=== PATIENT | female | born 1940 | race Caucasian/White ===

== ENCOUNTER 2021-04-25 08:59 | Outpatient (REF) | payer MEDICARE, SELFPAY ==
[2021-04-25 11:26] LABS: Alanine Aminotransferase 7 U/L (0-31); Albumin Level 4.4 g/dL (3.5-5.0); Alkaline Phosphatase 79 U/L (39-117); Anion Gap 15 (12-20); Aspartate Amino Transferase 16 U/L (5-31); Bilirubin Total 0.5 mg/dL (0.0-1.0); Blood Urea Nitrogen 31 mg/dL (9-16); Calcium 9.4 mg/dL (8.4-10.2); Carbon Dioxide 26 mmol/L (22-29); Chloride 103 mmol/L (96-108); Cholesterol 212 mg/dL; Estimated Glomerular Filt Rate 46; Glucose Fasting 101 mg/dL (60-99); HDL Cholesterol 58 mg/dL; LDL Cholesterol Calculated 129 mg/dl; Potassium 3.9 mmol/L (3.3-5.1); Sodium 140 mmol/L (135-145); Total Protein 6.8 g/dL (6.5-8.0); Triglycerides 128 mg/dL
[2021-04-25 11:44] LABS: Hematocrit 39.4 % (37-47); Mean Corpuscular Hemoglobin 32.5 pg (27.0-33.0); Mean Corpuscular Volume 98.5 fL (80-98); Mean Platelet Volume 10.4 fL (9.4-12.3); Platelet Count 275 X10*3/uL (160-400); Red Cell Distribution Width 12.9 % (11.0-16.0); White Blood Count 7.5 X10*3/uL (4.8-10.8)
[2021-04-25 11:48] LABS: Thyroid Stimulating Hormone 1.21 uIU/mL (0.32-4.0); Vitamin D 25-OH Total 81.9 ng/mL (>30)
[2021-04-25 11:58] LABS: Vitamin B12 > 2000 pg/mL (200-900)
== END 2021-04-25 09:00 | disposition home or self-care (01) ==
LOC: HO.MANLDS 08:59
PROVIDERS: PCP Internal Medicine; Visit Provider Internal Medicine
DX: I10 Essential (primary) hypertension (principal); F32.1 Major depressive disorder, single episode, moderate; R53.83 Other fatigue
CPT/HCPCS: 36415; 80053; 80061; 82306; 82607; 84443; 85027

== ENCOUNTER 2022-03-13 08:34 | Outpatient (REF) | payer MEDICARE, SELFPAY ==
[2022-03-13 11:25] LABS: Hematocrit 40.6 % (37.0-47.0); Hemoglobin 13.1 g/dl (12.0-16.0); Mean Corpuscular HGB Conc 32.3 g/dl (31.0-35.0); Mean Corpuscular Hemoglobin 31.9 pg (27.0-33.0); Mean Corpuscular Volume 98.8 fL (80.0-98.0); Mean Platelet Volume 10.4 fL (9.4-12.3); Platelet Count 280 X10*3/uL (160-400); Red Blood Count 4.11 X10*6/uL (4.20-5.50); Red Cell Distribution Width 13.2 % (11.0-16.0); White Blood Count 6.3 X10*3/uL (4.8-10.8)
[2022-03-13 11:36] LABS: Estimated Average Glucose 100 mg/dL; Hemoglobin A1c % 5.1 %
[2022-03-13 12:06] LABS: Vitamin D 25-OH Total 53.4 ng/mL (>30)
[2022-03-13 12:14] LABS: Alanine Aminotransferase 10 U/L (0-31); Albumin Level 4.3 g/dL (3.5-5.0); Alkaline Phosphatase 80 U/L (39-117); Anion Gap 12 (12-20); Aspartate Amino Transferase 14 U/L (5-31); Bilirubin Total 0.4 mg/dL (0.0-1.0); Blood Urea Nitrogen 32 mg/dL (9-16); Calcium 9.6 mg/dL (8.4-10.2); Carbon Dioxide 29 mmol/L (22-29); Chloride 103 mmol/L (96-108); Estimated Glomerular Filt Rate 44; Glucose Random 94 mg/dL (60-115); Potassium 4.2 mmol/L (3.3-5.1); Sodium 140 mmol/L (135-145); Total Protein 6.7 g/dL (6.5-8.0)
== END 2022-03-13 08:35 | disposition home or self-care (01) ==
LOC: HO.MANLDS 08:34
PROVIDERS: PCP Internal Medicine; Visit Provider Internal Medicine
DX: I10 Essential (primary) hypertension (principal); R73.01 Impaired fasting glucose
CPT/HCPCS: 36415; 80053; 82306; 83036; 85027

== ENCOUNTER 2022-11-25 11:07 | Outpatient (REF) | payer MEDICARE, SELFPAY ==
[2022-11-25 14:04] LABS: MANUAL DIFF FLAG NO
[2022-11-25 14:21] LABS: Basophils Percent Auto 0.3 % (0-2); Eosinophils Absolute Auto 0.1 X10*3/uL (0.0-0.4); Eosinophils Percent Auto 1.5 % (0-4); Hematocrit 37.1 % (37.0-47.0); Hemoglobin 12.2 g/dl (12.0-16.0); Imm Gran Abs Auto 0.03 X10*3/uL (0.00-0.03); Imm Gran Pct Auto 0.4 % (0.0-0.4); Lymphocytes Absolute Auto 0.8 X10*3/uL (1.2-4.9); Mean Corpuscular HGB Conc 32.9 g/dl (31.0-35.0); Mean Corpuscular Hemoglobin 32.3 pg (27.0-33.0); Mean Corpuscular Volume 98.1 fL (80.0-98.0); Mean Platelet Volume 10.2 fL (9.4-12.3); Monocytes Absolute Auto 0.5 X10*3/uL (0.1-1.2); Monocytes Percent Auto 6.1 % (2-11); Neutrophils Absolute Auto 6.5 x10*3/uL (2.0-8.3); Neutrophils Percent Auto 81.7 % (45-73); Platelet Count 265 X10*3/uL (160-400); Red Blood Count 3.78 X10*6/uL (4.20-5.50); White Blood Count 7.9 X10*3/uL (4.8-10.8)
[2022-11-25 14:58] LABS: Alanine Aminotransferase 9 U/L (0-31); Albumin Level 4.2 g/dL (3.5-5.0); Alkaline Phosphatase 90 U/L (39-117); Anion Gap 14 (12-20); Aspartate Amino Transferase 16 U/L (5-31); Bilirubin Total 0.4 mg/dL (0.0-1.0); Blood Urea Nitrogen 41 mg/dL (9-16); Calcium 9.1 mg/dL (8.4-10.2); Carbon Dioxide 24 mmol/L (22-29); Chloride 103 mmol/L (96-108); Estimated Glomerular Filt Rate 52; Glucose Random 123 mg/dL (60-115); Potassium 4.2 mmol/L (3.3-5.1); Sodium 137 mmol/L (135-145); Thyroid Stimulating Hormone 1.58 uIU/mL (0.32-4.0); Total Protein 6.3 g/dL (6.5-8.0); Vitamin D 25-OH Total 79.2 ng/mL (>30)
== END 2022-11-25 11:08 | disposition home or self-care (01) ==
LOC: HO.MANLDS 11:07
PROVIDERS: Visit Provider Internal Medicine
DX: I10 Essential (primary) hypertension (principal)
CPT/HCPCS: 36415; 80053; 82306; 84443; 85025

== ENCOUNTER 2023-12-15 09:35 | Outpatient (REF) | payer MEDICARE, SELFPAY ==
[2023-12-15 13:55] LABS: MANUAL DIFF FLAG NO
[2023-12-15 14:04] LABS: Basophils Percent Auto 0.4 % (0-2); Eosinophils Absolute Auto 0.1 X10*3/uL (0.0-0.4); Eosinophils Percent Auto 1.4 % (0-4); Hematocrit 38.5 % (37.0-47.0); Hemoglobin 12.7 g/dl (12.0-16.0); Imm Gran Abs Auto 0.03 X10*3/uL (0.00-0.03); Imm Gran Pct Auto 0.4 % (0.0-0.4); Lymphocytes Absolute Auto 0.8 X10*3/uL (1.2-4.9); Lymphocytes Percent Auto 10.9 % (20-40); Mean Corpuscular Hemoglobin 31.7 pg (27.0-33.0); Mean Platelet Volume 10.1 fL (9.4-12.3); Monocytes Absolute Auto 0.6 X10*3/uL (0.1-1.2); Neutrophils Absolute Auto 5.7 x10*3/uL (2.0-8.3); Neutrophils Percent Auto 78.9 % (45-73); Platelet Count 293 X10*3/uL (160-400); Red Blood Count 4.01 X10*6/uL (4.20-5.50); Red Cell Distribution Width 13.6 % (11.0-16.0); White Blood Count 7.2 X10*3/uL (4.8-10.8)
[2023-12-15 14:17] LABS: Estimated Average Glucose 82 mg/dL; Hemoglobin A1c % 4.5 % (<6.0)
[2023-12-15 14:19] LABS: Alanine Aminotransferase 8 U/L (0-31); Albumin Level 4.3 g/dL (3.5-5.0); Alkaline Phosphatase 92 U/L (39-117); Anion Gap 14 (12-20); Aspartate Amino Transferase 18 U/L (5-31); Bilirubin Total 0.4 mg/dL (0.0-1.0); Blood Urea Nitrogen 32 mg/dL (9-16); Calcium 9.5 mg/dL (8.4-10.2); Carbon Dioxide 27 mmol/L (22-29); Chloride 100 mmol/L (96-108); Cholesterol 216 mg/dL (<200); Estimated Glomerular Filt Rate 45; Glucose Random 103 mg/dL (60-115); HDL Cholesterol 62 mg/dL (>40); LDL Cholesterol Calculated 131 mg/dL (<100); Potassium 4.3 mmol/L (3.3-5.1); Sodium 137 mmol/L (135-145); Triglycerides 119 mg/dL (<150)
[2023-12-15 14:36] LABS: Vitamin D 25-OH Total 105.8 ng/mL (>30)
[2023-12-15 14:48] LABS: Folate 9.9 ng/mL (> or = 4.0); Vitamin B12 > 2000 pg/mL (200-900)
== END 2023-12-15 09:36 | disposition home or self-care (01) ==
LOC: HO.MANLDS 09:35
PROVIDERS: Visit Provider Internal Medicine
DX: I10 Essential (primary) hypertension (principal); R73.01 Impaired fasting glucose; E55.9 Vitamin D deficiency, unspecified
CPT/HCPCS: 36415; 80053; 80061; 82306; 82607; 82746; 83036; 85025

== ENCOUNTER 2024-03-22 11:16 | Outpatient (REF) | payer MEDICARE, SELFPAY ==
[2024-03-22 13:21] LABS: MANUAL DIFF FLAG NO
[2024-03-22 13:54] LABS: Basophils Percent Auto 0.5 % (0-2); Eosinophils Percent Auto 0.7 % (0-4); Hematocrit 23.7 % (37.0-47.0); Hemoglobin 7.5 g/dl (12.0-16.0); Imm Gran Abs Auto 0.02 X10*3/uL (0.00-0.03); Imm Gran Pct Auto 0.3 % (0.0-0.4); Lymphocytes Absolute Auto 0.5 X10*3/uL (1.2-4.9); Mean Corpuscular HGB Conc 31.6 g/dl (31.0-35.0); Mean Corpuscular Volume 97.9 fL (80.0-98.0); Mean Platelet Volume 9.4 fL (9.4-12.3); Monocytes Absolute Auto 0.4 X10*3/uL (0.1-1.2); Monocytes Percent Auto 6.4 % (2-11); Neutrophils Absolute Auto 4.9 x10*3/uL (2.0-8.3); Neutrophils Percent Auto 83.1 % (45-73); Platelet Count 360 X10*3/uL (160-400); Red Blood Count 2.42 X10*6/uL (4.20-5.50); Red Cell Distribution Width 14.2 % (11.0-16.0); White Blood Count 5.9 X10*3/uL (4.8-10.8)
[2024-03-22 14:11] LABS: Alanine Aminotransferase 5 U/L (0-31); Albumin Level 3.9 g/dL (3.5-5.0); Alkaline Phosphatase 80 U/L (39-117); Anion Gap 12 (12-20); Aspartate Amino Transferase 14 U/L (5-31); Bilirubin Total 0.2 mg/dL (0.0-1.0); Blood Urea Nitrogen 30 mg/dL (9-16); Calcium 9.1 mg/dL (8.4-10.2); Carbon Dioxide 25 mmol/L (22-29); Chloride 105 mmol/L (96-108); Estimated Glomerular Filt Rate 40; Glucose Random 96 mg/dL (60-115); Iron 21 mcg/dL (30-160); Percent Iron Saturation 8 % (15-50); Potassium 4.2 mmol/L (3.3-5.1); Sodium 138 mmol/L (135-145); Total Iron Binding Capacity 264 mcg/dL (228-428); Total Protein 6.3 g/dL (6.5-8.0); Unsaturated Iron Binding 243 ug/dL
[2024-03-22 14:29] LABS: Ferritin 74 ng/mL (10-250)
== END 2024-03-22 11:17 | disposition home or self-care (01) ==
LOC: HO.MANLDS 11:16
PROVIDERS: Visit Provider Physician Assistant
DX: R19.5 Other fecal abnormalities (principal)
CPT/HCPCS: 36415; 80053; 82728; 83540; 85025

== ENCOUNTER 2024-04-07 11:14 | Outpatient (REF) | payer MEDICARE, SELFPAY ==
[2024-04-07 13:21] LABS: MANUAL DIFF FLAG NO
[2024-04-07 13:51] LABS: Basophils Percent Auto 0.5 % (0-2); Eosinophils Absolute Auto 0.1 X10*3/uL (0.0-0.4); Eosinophils Percent Auto 1.5 % (0-4); Imm Gran Abs Auto 0.04 X10*3/uL (0.00-0.03); Imm Gran Pct Auto 0.6 % (0.0-0.4); Lymphocytes Absolute Auto 0.6 X10*3/uL (1.2-4.9); Lymphocytes Percent Auto 8.8 % (20-40); Mean Corpuscular HGB Conc 31.1 g/dl (31.0-35.0); Mean Corpuscular Hemoglobin 29.3 pg (27.0-33.0); Mean Corpuscular Volume 94.1 fL (80.0-98.0); Mean Platelet Volume 9.7 fL (9.4-12.3); Monocytes Absolute Auto 0.6 X10*3/uL (0.1-1.2); Monocytes Percent Auto 9.1 % (2-11); Neutrophils Absolute Auto 5.2 x10*3/uL (2.0-8.3); Neutrophils Percent Auto 79.5 % (45-73); Platelet Count 321 X10*3/uL (160-400); Red Blood Count 2.05 X10*6/uL (4.20-5.50); Red Cell Distribution Width 14.4 % (11.0-16.0); White Blood Count 6.5 X10*3/uL (4.8-10.8)
[2024-04-07 13:58] LABS: Hematocrit 19.3 % (37.0-47.0)
[2024-04-07 14:14] LABS: Iron 10 mcg/dL (30-160); Percent Iron Saturation 4 % (15-50); Total Iron Binding Capacity 261 mcg/dL (228-428); Unsaturated Iron Binding 251 ug/dL
[2024-04-07 14:34] LABS: Folate 9.5 ng/mL (> or = 4.0); Vitamin B12 1367 pg/mL (200-900)
[2024-04-07 14:37] LABS: Ferritin 44 ng/mL (10-250)
== END 2024-04-07 11:15 | disposition home or self-care (01) ==
LOC: HO.MANLDS 11:14
PROVIDERS: Visit Provider Physician Assistant
DX: Z13.89 Encounter for screening for other disorder (principal)
CPT/HCPCS: 36415; 82607; 82728; 82746; 83540; 85025

== ENCOUNTER 2024-04-07 15:13 | Inpatient (IN) | payer MEDICARE, SELFPAY ==
[2024-04-07] VITALS (12 sets, daily range): BP systolic 104–169; BP diastolic 47–76; PULSE 67–85; RESP 12–20; TEMP 36.4–37.5; O2SAT 96–99; BMI 23.8
--- NOTE | 2024-04-07 15:21 | ED.GENADULT ---
HPI - General Adult General Chief complaint: Recheck/Abnormal Lab/Rx Stated complaint: ref by pcp for bloodwork/transfusion Time Seen by Provider: 04/07/24 15:53 Source: patient and family (, Jamal) Mode of arrival: ambulatory Limitations: no limitations History of Present Illness ED Provider: Dr. Espinoza Francisco HPI narrative: 84-year-old female with a history of hyperlipidemia, mini strokes, left total knee replacement, left carotid endarterectomy who presents emergency department for evaluation of hematocrit. The patient states that she had a total knee replacement at [facility] in January of 2024. After this total knee replacement she was placed on Eliquis for 1 month and the prescription was not renewed. The patient states that she had a mini stroke many years ago in his been on Plavix since then. Patient states that she had a another mini stroke on Feb 24 2024 and was admitted to [facility]. She states she had a left carotid endarterectomy at that time. Patient states that she was continued on Plavix but not started on any other medications. Patient was told that she had anemia after her 2nd mini stroke and that she would need to follow-up with her primary care doctor. She states that she saw her primary care doctor today and had blood work. She was called and told that her hematocrit and hemoglobin were low and that she needed to go to the emergency department for evaluation and transfusions. Patient states that she has been asymptomatic. She denied lightheadedness, dizziness, chest pain with exertion, dyspnea on exertion, shortness of breath, weight loss or weight gain. She has not noticed any dark tarry stools bloody stools or black stools. She states she does take [id number] supplements including B12. Related Data Allergies Allergy/AdvReac Type Severity Reaction Status Date / Time aspirin Allergy Hives Verified 04/07/24 15:22 Review of Systems Review of Systems: Yes all other systems are reviewed and are negative [facility] Past Medical History [facility] Narrative: Social history: The patient is a former smoker and states she quit smoking after her 2nd mini stroke in February of 2024. She has a greater than 50 pack-year history of smoking. She states she only occasionally drinks alcohol. She denies drug use. Social History Social History Advance Directives: No Advance Directives Information Provided: No Physical Exam ED Vital Signs: Vital Signs - 24 hr 04/07/24 15:19 04/07/24 15:35 04/07/24 16:09 Temperature 99.5 F 98.4 F 9.3 F L Pulse Rate 77 85 67 Respiratory Rate 16 14 12 Blood Pressure 126/47 L 104/52 L 122/53 L Pulse Oximetry 97 98 99 Oxygen Delivery Method Room Air Room Air Room Air 04/07/24 16:54 04/07/24 17:11 Temperature 98.2 F 97.6 F Pulse Rate 69 74 Respiratory Rate 16 18 Blood Pressure 144/65 H 152/66 H Pulse Oximetry Oxygen Delivery Method BMI result Body Mass Index 23.8 Vital signs were normal Exam: General: Awake, alert in no distress Head: Normocephalic, atraumatic EENT: PERRL, Lids normal, sclera normal, conjunctiva normal, nose normal , ears normal, throat without erythema or exudates Neck: Supple, no adenopathy Lung: breath sounds symmetric, no wheezing, rales or rhonchi Chest: symmetric movement, nontender Heart: Normal rate with an irregular rhythm, normal S1, S2 no murmurs or rubs Abdomen: soft, non-tender, nondistended, normal bowel sounds Rectal: No external hemorrhoids, good rectal tone , brown stool strongly Hemoccult positive Back: no vertebral tenderness, no CVAT Extremities: no deformities, moves all extremities symmetrically Neuro: Awake, alert, oriented, normal speech, cranial nerves intact, moves all extremities symmetrically Psych: Pleasant, cooperative Course Course Course Narrative: This is an RME done by FIDEL Vargas: Additional HPI, ROS, PE not included below will be deferred to primary provider. 84 year old female hx of obesity, recent knee surgery present w/ abnormal labs from pcp w/ low H&H had gi bleeding before but not lately was on thinners but she stopped taking them a while ago Plan- labs, obs Appearance: Alert.? Oriented X3.? No acute cardiopulmonary distress distress.? Head: Normocephalic, atraumatic, no step-offs or deformities CVS: Pulses normal.? Respiratory: No respiratory distress.? Abdomen: Soft and nontender.? Skin: ? Pale skin color. Extremities: 5/5 strength to bilateral upper and lower extremities Neuro: Oriented X 3.? No motor deficit.? No sensory deficit. Medications Administered Generic Name Dose Route Start Last Admin Trade Name Freq PRN Reason Stop Dose Admin Sodium Chloride 100 mls @ 100 mls/hr 04/07/24 16:29 04/07/24 16:56 Ns IV 04/07/24 17:28 100 mls/hr ONCE ONE Administration Medical Decision Making Medical Decision Making [facility] Narrative: 84-year-old female with a history of hyperlipidemia, mini strokes, left total knee replacement, left carotid endarterectomy who presents emergency department for evaluation of hematocrit. The patient states that she had a total knee replacement at [facility] in January of 2024 in took a short course of Eliquis but is no longer on this medication. Patient has been on Plavix for many years secondary to previous mini stroke. Patient was admitted to [facility] for mini stroke 02/24/2024. She states she had a left carotid endarterectomy at that time and was continued on Plavix. She was told that she had anemia and she followed up today with her PCP had blood work and was found to be severely anemic and referred to the emergency department. The patient has been asymptomatic despite having severe anemia. Physical examination was unremarkable except for a rectal exam that revealed brown stool which was strongly Hemoccult positive. Differential diagnosis: ?Includes but is not limited to GI bleed, GI malignancy, myelodysplastic disorder, thiamine/folate deficiency, iron deficiency Following evaluation was ordered: CBC, CMP, type and screen, occult stool testing Patient was initially treated with the followin units of packed red blood cells each transfused over 2-3 hours Course: 17:08 My interpretation patient's laboratory evaluation is as follows: WBC normal 6100. Low H&H of 5.8 and 18.4. Baseline limited range is from 6.0 to 12.7. Baseline hematocrit range is from 21.4 to 38.5. Patient's MCV today was normal at 92.5 but the patient has had elevated MCV as high as 100.8. BUN elevated at 34-chronically elevated with a normal creatinine of 1.2. Patient had iron studies from yesterday which revealed low iron of 10, normal TIBC of 261, normal ferritin and normal iron binding capacity-this could represent iron deficiency however normal TIBC and normal ferritin were unexpected (TIBC should be high and ferritin should be low and iron deficient). Also MCV should be low. B12 was elevated 1367-the patient does take B12 supplement. Folate was normal at 9.5. Given the patient's Hemoccult-positive stool her persistent anemia, I think the patient should be admitted to the hospital to further evaluate her persistent anemia and now severe anemia 17:18 I did discuss the patient's presentation over tiger text with the covering hospitalist, Dr. Bourgeois the patient was accepted on the hospitalist service for further management. Admission/Observation Consideration of admission/observation: Escalation of care including admission/observation considered Consult Healthcare Provider Management of the patient was discussed with: Hospitalist Lab Data MDM Lab Attestation statement: I reviewed the patient's lab results. 04/07/24 15:45 04/07/24 15:45 Labs: Lab Results 04/07/24 04/07/24 04/07/24 Range/Units 15:45 15:49 16:24 WBC 6.1 (4.8-10.8) X10*3/uL RBC 1.99 L (4.20-5.50) X10*6/uL Hgb 5.8 L* (12.0-16.0) g/dl Hct 18.4 L* (37.0-47.0) % MCV 92.5 (80.0-98.0) fL MCH 29.1 (27.0-33.0) pg MCHC 31.5 (31.0-35.0) g/dl RDW 14.4 (11.0-16.0) % Plt Count 293 (160-400) X10*3/uL MPV 9.1 L (9.4-12.3) fL Immature Gran % (Auto) 0.3 (0.0-0.4) % Neut % (Auto) 75.0 H (45-73) % Lymph % (Auto) 12.4 L (20-40) % Greer % (Auto) 9.9 (2-11) % Eos % (Auto) 2.1 (0-4) % Baso % (Auto) 0.3 (0-2) % Lymph # (Auto) 0.8 L (1.2-4.9) X10*3/uL Greer # (Auto) 0.6 (0.1-1.2) X10*3/uL Eos # (Auto) 0.1 (0.0-0.4) X10*3/uL Baso # (Auto) 0.0 (0.0-0.2) X10*3/uL Abs Immat Gran (auto) 0.02 (0.00-0.03) X10*3/uL Absolute Neuts (auto) 4.6 (2.0-8.3) x10*3/uL Absolute Nucleated RBC 0.000 (0.0-0.012) X10*3/uL Nucleated RBC % (auto) 0.0 (0.0-0.2) /100WBC Sodium 135 (135-145) mmol/L Potassium 4.6 (3.3-5.1) mmol/L Chloride 102 (96-108) mmol/L Carbon Dioxide 24 (22-29) mmol/L Anion Gap 14 (12-20) BUN 34 H (9-16) mg/dL Creatinine 1.20 (0.5-1.4) mg/dL Estim Creat Clear Calc 35.1 Estimated GFR 43 Random Glucose 99 (60-115) mg/dL Calcium 8.1 L D (8.4-10.2) mg/dL Total Bilirubin 0.2 (0.0-1.0) mg/dL AST 15 (5-31) U/L ALT 9 (0-31) U/L Alkaline Phosphatase 88 (39-117) U/L Total Protein 6.1 L (6.5-8.0) g/dL Albumin 3.7 (3.5-5.0) g/dL Stool Occult Blood POSITIVE (NEGATIVE) Blood Type A Positive Antibody Screen NEGATIVE Crossmatch See Detail Independent Historian Clinical information obtained from an independent historian. History obtained from or confirmed by: Spouse Critical Care Time Critical Care Time Critical Care Time: Yes Total Critical Care Time: 35 Attestation: Critical Care: The patient was critically ill with a high probability of imminent or life threatening deterioration. I spent greater than 30 minutes of discontinuous time evaluating the patient,delivering critical care at the bedside, discussing and evaluating pertinent data with consultants. Critical care time does not include time spent performing separately billable procedures or teaching. Total time spent performing critical care was 35 minutes. Discharge Plan Discharge Patient Disposition: Admitted As Inpatient Print Language: Setswana
--- NOTE | 2024-04-07 15:51 | PC.NURSE ---
a&ox4. vss and up to date. 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 pt presents to main ED from triage after being sent in by PCP d/t low H&H. pt has no acute complaints. denies pain/feeling dizzy/lightheaded/black stool. abd nontender. pt reports having blood transfusion many years ago. 20gIV placed in the right AC - labs obtained/sent to lab. no sob/wob noted. respirations even/unlabored. plan of care ongoing. bedside for support. call beckman placed within reach.
[2024-04-07 15:52] LABS: MANUAL DIFF FLAG NO
[2024-04-07 15:59] LABS: Basophils Percent Auto 0.3 % (0-2); Eosinophils Absolute Auto 0.1 X10*3/uL (0.0-0.4); Eosinophils Percent Auto 2.1 % (0-4); Imm Gran Abs Auto 0.02 X10*3/uL (0.00-0.03); Imm Gran Pct Auto 0.3 % (0.0-0.4); Lymphocytes Absolute Auto 0.8 X10*3/uL (1.2-4.9); Lymphocytes Percent Auto 12.4 % (20-40); Mean Corpuscular HGB Conc 31.5 g/dl (31.0-35.0); Mean Corpuscular Hemoglobin 29.1 pg (27.0-33.0); Mean Corpuscular Volume 92.5 fL (80.0-98.0); Mean Platelet Volume 9.1 fL (9.4-12.3); Monocytes Absolute Auto 0.6 X10*3/uL (0.1-1.2); Monocytes Percent Auto 9.9 % (2-11); Neutrophils Absolute Auto 4.6 x10*3/uL (2.0-8.3); Platelet Count 293 X10*3/uL (160-400); Red Blood Count 1.99 X10*6/uL (4.20-5.50); Red Cell Distribution Width 14.4 % (11.0-16.0); White Blood Count 6.1 X10*3/uL (4.8-10.8)
[2024-04-07 16:05] LABS: Hematocrit 18.4 % (37.0-47.0)
[2024-04-07 16:07] LABS: Hemoglobin 5.8 g/dl (12.0-16.0)
[2024-04-07 16:10] LABS: Alanine Aminotransferase 9 U/L (0-31); Albumin Level 3.7 g/dL (3.5-5.0); Alkaline Phosphatase 88 U/L (39-117); Anion Gap 14 (12-20); Aspartate Amino Transferase 15 U/L (5-31); Bilirubin Total 0.2 mg/dL (0.0-1.0); Blood Urea Nitrogen 34 mg/dL (9-16); Calcium 8.1 mg/dL (8.4-10.2); Carbon Dioxide 24 mmol/L (22-29); Chloride 102 mmol/L (96-108); Creatinine Clr Calc Pharmacy 35.1; Estimated Glomerular Filt Rate 43; Glucose Random 99 mg/dL (60-115); Potassium 4.6 mmol/L (3.3-5.1); Sodium 135 mmol/L (135-145); Total Protein 6.1 g/dL (6.5-8.0)
--- NOTE | 2024-04-07 16:30 | PC.NURSE ---
obsx1 obtained by dr. moffett at this time. skin warm to the touch - rectal temp obtained displaying 99.3. otherwise vss. 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 pt aware of stool occult results/plan of care moving foward.
[2024-04-07 16:40] LABS: OBS Int Ctl Valid YES; OBS1 POSITIVE (NEGATIVE)
--- NOTE | 2024-04-07 16:56 | ECG_ITS ---
Test Reason : IRREGULAR RHYTHM, ANEMIA Blood Pressure : / mmHG Vent. Rate : 074 BPM Atrial Rate : 074 BPM P-R Int : 186 ms QRS Dur : 096 ms QT Int : 392 ms P-R-T Axes : 063 -13 044 degrees QTc Int : 435 ms Sinus rhythm with Premature supraventricular complexes Possible Left atrial enlargement Borderline ECG No previous ECGs available Referred By: Espinoza Francisco Electronically Signed By:Nathaniel Shin
--- NOTE | 2024-04-07 17:05 | PC.NURSE ---
1st unit of PRBC starting to infusion at this time. pt tolerating first 15 min of transfusion well. no signs of complications/reactions noted at this time. no sob/wob noted. respirations even/unlabored.
--- NOTE | 2024-04-07 17:12 | PC.NURSE ---
pt tolerated first 15 minutes of PRBC transfusion. no complications noted. pt transitioned to maintenance via pump at this time - infusing at 200mls/hr. no sob/wob noted. respirations even/unlabored. plan of care ongoing. call beckman placed within reach.
--- NOTE | 2024-04-07 17:38 | P.HPHOSP_ITS ---
History of Present Illness Date of Service: 04/07/24 Chief Complaint: anemia 84F 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, s/p left CEA 02/19/24, ckd III, gerd, htn, sent for hgb 6 on routine labs. shun is on plavix for cva, was on eliquis 2.5mg bid for 30 days from mid january to mid february 2024 for dvt prophylaxis sp left tka. patient reports some dark stools while on eliquis, but has since resolved. denies any symptoms. hgb was 9.2 on 02/22/24, decreased to 7.5 on 03/22/24, and now 6. heme occult positive, iron sat low. Review of Systems 2 Review of Systems: Yes all other systems are reviewed and are negative [facility] Social History Alcohol intake: current Alcohol intake frequency: holidays/special occasions only Patient Tobacco Use Status: Former Tobacco user Meds Allergies Allergy/AdvReac Type Severity Reaction Status Date / Time aspirin Allergy Hives Verified 04/07/24 15:22 Active Medications: Current Medications Pantoprazole Sodium (Pantoprazole Sodium 40 Mg/10 Ml Vial) 40 mg IVPUSH BID@0630,1630 [facility] Physical Exam 2 Vital Signs and Narrative: Vital Signs: Last Vital Signs Temp 97.6 F 04/07/24 17:11 Pulse 74 04/07/24 17:11 Resp 18 04/07/24 17:11 BP 152/66 H 04/07/24 17:11 Pulse Ox 99 04/07/24 16:09 O2 Del Method Room Air 04/07/24 16:09 BMI result Body Mass Index 23.8 General: AO X 3, no acute distress Resp: CTA bilateral, no accessory muscles used CVS: S1,S2,RRR GI: soft, non tender, non distended Neuro: motor grossly intact, alert Psych: appropriate affect, appropriate insight Results Labs 04/07/24 15:45 04/07/24 15:45 Labs: Laboratory Results - last 24 hr 04/07/24 04/07/24 04/07/24 15:45 15:49 16:24 MCV 92.5 MCH 29.1 MCHC 31.5 RDW 14.4 Plt Count 293 MPV 9.1 L Immature Gran % (Auto) 0.3 Neut % (Auto) 75.0 H Lymph % (Auto) 12.4 L [place] % (Auto) 9.9 Eos % (Auto) 2.1 Baso % (Auto) 0.3 Lymph # (Auto) 0.8 L [place] # (Auto) 0.6 Eos # (Auto) 0.1 Baso # (Auto) 0.0 Abs Immat Gran (auto) 0.02 Absolute Neuts (auto) 4.6 Absolute Nucleated RBC 0.000 Nucleated RBC % (auto) 0.0 Anion Gap 14 Estim Creat Clear Calc 35.1 Estimated GFR 43 Random Glucose 99 Calcium 8.1 L D Total Bilirubin 0.2 AST 15 ALT 9 Alkaline Phosphatase 88 Total Protein 6.1 L Albumin 3.7 Stool Occult Blood POSITIVE Blood Type A Positive Antibody Screen NEGATIVE Crossmatch See Detail Assessment and Plan (1) Severe anemia: Status: Acute Plan 84F 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, s/p left CEA 02/19/24, ckd III, gerd, htn, sent for hgb 6 on routine labs acute on chronic blood loss anemia ppi, gi eval, 2 units prbc, monitor will continue plavix for now, as risk for stroke currently higher than bleeding risk, if signs of gross bleeding would discontinue history of cva with bilateral carotid stenosis, s/p left cea on plavix (asa and statin intolerant), o/p follow up with vascular for right cea ckd III stable htn amlodipine dvt prophylaxis - mechanical due to gi bleed full code patient with significant anemia, requires multiple transfusions, close monitoring, and possible gi intervention, therefore, expected to require atleast 2 midnights inpatient Quality Stroke Does the patient have a stroke diagnosis?: No VTE Prior VTE?: No VTE Risk Level:: Medical - moderate - high VTE Device Contraindication: N/A - Device Ordered VTE Drug Contraindication: Treatment Not Tolerated
[2024-04-07] MEDS: Pantoprazole Sodium 40 MG/10 ML VIAL IVPUSH (17:54)
--- NOTE | 2024-04-07 17:57 | PC.NURSE ---
medication administered per provider order. ekg performed by tech/sent to admitting provider.
--- NOTE | 2024-04-07 18:02 | MHC.EDTECH ---
I gave the EKG picture to MAGGIE Hough , she said will be send to the provider
--- NOTE | 2024-04-07 19:07 | PHA.MEDREC ---
Pharmacy Consult ? Medication Reconciliation Pharmacy has completed the medication reconciliation.
--- NOTE | 2024-04-07 19:12 | PC.NURSE ---
1 st unit of PRBC's transfused, patient tolerated well, VSS.
--- NOTE | 2024-04-07 20:01 | PC.NURSE ---
2 nd unit of PRBC started and infusing via 20 G IV line in L AC, patient tolerating transfusion well, no signs and symptoms of adverse reactions noted at this time, VSS.
[2024-04-07] MEDS: LORazepam 1 MG TABLET PO (22:09)
[2024-04-07] MEDS: traZODone HCL 25 MG HALFTAB 75 MG PO (22:09)
[2024-04-08] VITALS (7 sets, daily range): BP systolic 134–161; BP diastolic 60–75; PULSE 57–78; RESP 16–20; TEMP 36.2–37.1; O2SAT 95–99
[2024-04-08] MEDS: Pantoprazole Sodium 40 MG/10 ML VIAL IVPUSH ×2 (06:10→15:42)
[2024-04-08 06:16] LABS: Hemoglobin 7.9 g/dl (12.0-16.0); Mean Corpuscular HGB Conc 32.9 g/dl (31.0-35.0); Mean Corpuscular Hemoglobin 29.6 pg (27.0-33.0); Mean Corpuscular Volume 89.9 fL (80.0-98.0); Mean Platelet Volume 9.3 fL (9.4-12.3); Platelet Count 301 X10*3/uL (160-400); Red Blood Count 2.67 X10*6/uL (4.20-5.50); Red Cell Distribution Width 14.1 % (11.0-16.0); White Blood Count 5.5 X10*3/uL (4.8-10.8)
[2024-04-08 06:33] LABS: Anion Gap 12 (12-20); Blood Urea Nitrogen 29 mg/dL (9-16); Calcium 8.6 mg/dL (8.4-10.2); Carbon Dioxide 25 mmol/L (22-29); Chloride 104 mmol/L (96-108); Creatinine Clr Calc Pharmacy 46.3; Estimated Glomerular Filt Rate 59; Glucose Fasting 92 mg/dL (60-99); Potassium 4.1 mmol/L (3.3-5.1); Sodium 137 mmol/L (135-145)
[2024-04-08] MEDS: amLODIPine Besylate 5 MG TABLET PO (08:31)
[2024-04-08] MEDS: Magnesium Oxide 400 MG TABLET PO (08:31)
[2024-04-08] MEDS: Ascorbic Acid 500 MG TABLET PO (08:31)
[2024-04-08] MEDS: Cyanocobalamin (Vitamin B-12) 100 MCG TABLET PO (08:31)
[2024-04-08] MEDS: Clopidogrel Bisulfate 75 MG TABLET PO (08:31)
--- NOTE | 2024-04-08 09:31 | MHC.CM.PN ---
Addendum entered by Viri Wade 04/08/24 12:14: Copy of HCP received from pts , now on file. Original Note: IMM 04/08. Pt self-care, lives at home with her /HCP. Pt uses a walker. Pts or daughter will transport her home at discharge. HCP copy requested. PCP: Dr. Lee Bolden
--- NOTE | 2024-04-08 09:33 | MHC.SHP ---
Pre-Procedural Eval Section A - 24 Hr Update-Section A only Date of Service: 04/08/24 The patient is an INPATIENT: Yes Changes since office visit: No Cold of Flu in the past 2 weeks, No New Medical Problems, No Changes in Medication and No Patient answered all questions The patient has been examined within 24 hours of the surgical procedure. The History & Physical has been completed within 30 days and I have reviewed it.: Yes Section B - Complete if H&P > 30 days Chief Complaint: GI Bleed Allergies: Allergies Allergy/AdvReac Type Severity Reaction Status Date / Time aspirin Allergy Hives Verified 04/07/24 15:22 Plan I have reviewed the history and physical and performed a pertinent physical examination on my patient. No changes have occurred unless specified. Time Spent With Patient Time: Total time managing care of this patient today ____ minutes.
--- NOTE | 2024-04-08 09:33 | PM.EVENT ---
Event Note Date of Service: 04/08/24 Event Note: GI consult dictated EGD/Colonoscopy are scheduled for further evaluation of significant iron def anemia and heme pos stools. Sophia is aware of risks and benefits and agrees to proceed. At this time, it appears that the benefits of continuing clopidogrel outweigh the risks of stopping it as she is high risk for cva and there is no active bleeding. Time Spent With Patient Time: Total time managing care of this patient today ____ minutes.
--- NOTE | 2024-04-08 10:25 | CONS_ITS ---
DATE OF SERVICE: 04/08/2024 REFERRING PHYSICIAN: David Bourgeois MD REASON FOR CONSULTATION: Anemia and Hemoccult-positive stools. HISTORY OF PRESENT ILLNESS: The patient is a pleasant 84-year-old woman, who was admitted to the hospital after presenting to the emergency department yesterday at the request of her primary care provider because of severe anemia. She has a history of CVA and underwent carotid endarterectomy in February and has been on anti-platelet medication with clopidogrel since. She does not tolerate aspirin. She previously had been on Eliquis, but this was stopped also. She reports dark stools in the past, which were formed, but denies any bright red blood per rectum or melena. She has previously undergone colonoscopy in the past approximately 10 years ago by her report. She thinks she may have had polyps. A Cologuard test was done within the last 5 years by her report, which was negative. She denies any history of peptic ulcer disease. She did formally smoke on a regular basis and does not drink significant amounts of alcohol. Laboratory data at the time of her evaluation documented a hematocrit of 18.4, which was comparable to the hematocrit that had been obtained by her PCP of 19.3. MCV has dropped over the past several months from 96 in November to 89.9 this morning. Coagulation studies have been normal. Iron saturation yesterday documented an iron saturation 4%. PAST MEDICAL HISTORY: 1. CVA as above with left CEA. 2. Chronic kidney disease. 3. Gastroesophageal reflux disease. 4. Hypertension. 5. 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 Eliquis used for 1 month after that. 6. Hyperlipidemia. CURRENT MEDICATIONS: Her current medication list is reviewed in the chart. ALLERGIES: ASPIRIN HAS BEEN ASSOCIATED WITH HIVES. FAMILY HISTORY: This is reviewed with the patient and is negative for GI malignancy. SOCIAL HISTORY: There is no current tobacco, alcohol, or substance abuse. REVIEW OF SYSTEMS: SKIN: No pruritus. HEENT: Negative. CARDIOPULMONARY: No shortness of breath or chest pain. GASTROINTESTINAL: As above. GENITOURINARY: Negative. NEUROPSYCHIATRIC: Negative. PHYSICAL EXAMINATION: GENERAL: Reveals a pleasant female, lying comfortably in bed. VITAL SIGNS: Reviewed in the electronic medical record and are stable. SKIN: Anicteric. HEENT: Shows no scleral icterus. NECK: Without lymphadenopathy or thyromegaly. LUNGS: Clear. HEART: Shows regular rate and rhythm. S1, S2. No murmur. ABDOMEN: Soft without focal masses or tenderness. Bowel sounds are present. No organomegaly is noted. EXTREMITIES: Without edema. LABORATORY DATA AND IMAGING STUDIES: Reviewed. IMPRESSION: 1. Iron deficiency anemia. 2. Hemoccult-positive stools. At this time, it seems prudent to continue clopidogrel because of her recent history of strokes as well as her carotid surgery. I have recommended she undergo further evaluation with upper endoscopy and colonoscopy because of her iron deficiency anemia and Hemoccult-positive stools. She did receive packed red blood cells overnight with improvement in her hematocrit and has not had any reported bleeding. At this time, she currently appears stable. She will undergo bowel prep later today and is scheduled for endoscopy and colonoscopy in the morning. Thanks for asking me to see her. I will follow her in the hospital with you. MD AIME Felder/DAREN / [phone]
--- NOTE | 2024-04-08 13:12 | HO.PM.IMPN ---
Subjective Subjective Date of Service: 04/08/24 Interval History: Seen and evaluated this morning No reported bleeding overnight Hb improved to 7.8 Review of Systems Review of Systems: Yes all other systems are reviewed and are negative Physical Exam Vital Signs: Vital Signs: Last Vital Signs Temp 98.0 F 04/08/24 11:14 Pulse 78 04/08/24 11:14 Resp 18 04/08/24 11:14 BP 135/67 04/08/24 11:14 Pulse Ox 96 04/08/24 11:14 O2 Del Method Room Air 04/08/24 11:14 BMI result Body Mass Index 23.8 Const: Other: Constitutional : Awake, interactive, not in distress Neck : Normal inspection, Supple Cardiovascular : RRR, no JVP, no lower extremity edema Respiratory : good bilateral air entry, no crackles, wheezes or rhonchi Gastrointestinal: soft, lax, Normal bowel sounds, Non tender Skin : Warm, Dry Neurological : Alert & oriented to self and place, No focal deficit Objective Data Active Medications Amlodipine Besylate (Amlodipine Besylate 5 Mg Tablet) 5 mg PO DAILY [facility]; Protocol Last Admin: 04/08/24 08:31 Dose: 5 mg Documented By: NANCY Ascorbic Acid (Ascorbic Acid 500 Mg Tablet) 500 mg PO DAILY [facility] Last Admin: 04/08/24 08:31 Dose: 500 mg Documented By: NANCY Clopidogrel Bisulfate (Clopidogrel Bisulfate 75 Mg Tablet) 75 mg PO DAILY [facility] Last Admin: 04/08/24 08:31 Dose: 75 mg Documented By: NANCY Cyanocobalamin (Cyanocobalamin (Vitamin B-12) 100 Mcg Tablet) 100 mcg PO DAILY [facility] Last Admin: 04/08/24 08:31 Dose: 100 mcg Documented By: NANCY Lorazepam (Lorazepam 1 Mg Tablet) 1 mg PO TID PRN PRN Reason: Anxiety Last Admin: 04/07/24 22:09 Dose: 1 mg Documented By: CARMEN Magnesium Oxide (Magnesium Oxide 400 Mg Tablet) 400 mg PO DAILY [facility] Last Admin: 04/08/24 08:31 Dose: 400 mg Documented By: NANCY Pantoprazole Sodium (Pantoprazole Sodium 40 Mg/10 Ml Vial) 40 mg IVPUSH BID@0630,1630 [facility] Last Admin: 04/08/24 06:10 Dose: 40 mg Documented By: CARMEN Polyethylene Glycol/Electrolytes (Peg 3350/Na Sulf,Bicarb,Cl/Kcl 4,000 Ml Soln.Recon) 240 ml PO Q10M DONOVAN Stop: 04/08/24 15:41 Trazodone HCl (Trazodone Hcl 25 Mg Halftab) 75 mg PO BEDTIME ODNOVAN Last Admin: 04/07/24 22:09 Dose: 75 mg Documented By: CARMEN Labs 04/08/24 05:48 04/08/24 05:48 Labs: Laboratory Results - last 24 hr 04/07/24 04/07/24 04/07/24 15:45 15:49 16:24 MCV 92.5 MCH 29.1 MCHC 31.5 RDW 14.4 Plt Count 293 MPV 9.1 L Immature Gran % (Auto) 0.3 Neut % (Auto) 75.0 H Lymph % (Auto) 12.4 L [place] % (Auto) 9.9 Eos % (Auto) 2.1 Baso % (Auto) 0.3 Lymph # (Auto) 0.8 L [place] # (Auto) 0.6 Eos # (Auto) 0.1 Baso # (Auto) 0.0 Abs Immat Gran (auto) 0.02 Absolute Neuts (auto) 4.6 Absolute Nucleated RBC 0.000 Nucleated RBC % (auto) 0.0 Anion Gap 14 Estim Creat Clear Calc 35.1 Estimated GFR 43 Random Glucose 99 Fasting Glucose Calcium 8.1 L D Total Bilirubin 0.2 AST 15 ALT 9 Alkaline Phosphatase 88 Total Protein 6.1 L Albumin 3.7 Stool Occult Blood POSITIVE Blood Type A Positive Antibody Screen NEGATIVE Crossmatch See Detail 04/08/24 05:48 MCV 89.9 MCH 29.6 MCHC 32.9 RDW 14.1 Plt Count 301 MPV 9.3 L Immature Gran % (Auto) Neut % (Auto) Lymph % (Auto) [place] % (Auto) Eos % (Auto) Baso % (Auto) Lymph # (Auto) [place] # (Auto) Eos # (Auto) Baso # (Auto) Abs Immat Gran (auto) Absolute Neuts (auto) Absolute Nucleated RBC 0.000 Nucleated RBC % (auto) 0.0 Anion Gap 12 Estim Creat Clear Calc 46.3 Estimated GFR 59 Random Glucose Fasting Glucose 92 Calcium 8.6 D Total Bilirubin AST ALT Alkaline Phosphatase Total Protein Albumin Stool Occult Blood Blood Type Antibody Screen Crossmatch Assessment and Plan (1) Positive fecal occult blood test: Status: Acute (2) Severe anemia: Status: Acute (3) Symptomatic anemia: Status: Acute (4) Acute on chronic blood loss anemia: Status: Acute Plan 84F 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, s/p left CEA 02/19/24, ckd III, gerd, htn, sent for hgb 6 on routine labs acute on chronic blood loss anemia Hb impoved to 7.8 after 2 units transfusion Continue IV ppi GI to do EGD and colonoscopy tomorrow will continue plavix for now, as risk for stroke currently higher than bleeding risk, if signs of gross bleeding would discontinue follow H&H history of cva with bilateral carotid stenosis, s/p left cea on plavix (asa and statin intolerant), o/p follow up with vascular for right cea ckd III stable htn amlodipine dvt prophylaxis - mechanical due to gi bleed full code patient with significant anemia, requires multiple transfusions, close monitoring, and possible gi intervention, therefore, expected to require overnight as inpatient Quality Stroke Does the patient have a stroke diagnosis?: No VTE Prior VTE?: No VTE Risk Level:: Medical - moderate - high VTE Device Contraindication: N/A - Device Ordered VTE Drug Contraindication: Treatment Not Tolerated
[2024-04-08] MEDS: PEG 3350/Na Sulf,Bicarb,Cl/KCL 4,000 ML SOLN.RECON 4000 ML PO (15:56)
[2024-04-08] MEDS: traZODone HCL 25 MG HALFTAB 75 MG PO (21:58)
[2024-04-09] VITALS (8 sets, daily range): BP systolic 119–176; BP diastolic 52–72; PULSE 65–77; RESP 15–20; TEMP 36.3–37.3; O2SAT 93–100
[2024-04-09] MEDS: Pantoprazole Sodium 40 MG/10 ML VIAL IVPUSH (06:32)
[2024-04-09 08:54] LABS: Red Cell Distribution Width 14.2 % (11.0-16.0)
[2024-04-09 08:58] LABS: Mean Corpuscular Hemoglobin 30.4 pg (27.0-33.0); Mean Corpuscular Volume 89.6 fL (80.0-98.0); Mean Platelet Volume 9.3 fL (9.4-12.3); Platelet Count 377 X10*3/uL (160-400); Red Blood Count 3.35 X10*6/uL (4.20-5.50); White Blood Count 6.9 X10*3/uL (4.8-10.8)
[2024-04-09 09:01] LABS: Hemoglobin 10.2 g/dl (12.0-16.0)
[2024-04-09 09:08] LABS: Anion Gap 15 (12-20); Blood Urea Nitrogen 14 mg/dL (9-16); Calcium 9.5 mg/dL (8.4-10.2); Carbon Dioxide 27 mmol/L (22-29); Chloride 103 mmol/L (96-108); Creatinine Clr Calc Pharmacy 50.2; Estimated Glomerular Filt Rate > 60; Glucose Random 105 mg/dL (60-115); Potassium 3.7 mmol/L (3.3-5.1); Sodium 141 mmol/L (135-145)
--- NOTE | 2024-04-09 09:27 | P.PNIM_ITS ---
Subjective Subjective Date of Service: 04/09/24 Interval History: Seen and evaluated this morning No reported bleeding overnight Hb improved to 10.2 Plan for EGD\Colonoscopy Review of Systems Review of Systems: Yes all other systems are reviewed and are negative Physical Exam 2 Vital Signs: Vital Signs: Last Vital Signs Temp 98.2 F 04/09/24 07:12 Pulse 68 04/09/24 07:12 Resp 18 04/09/24 07:12 BP 135/63 04/09/24 07:12 Pulse Ox 96 04/09/24 07:12 O2 Del Method Room Air 04/09/24 07:12 BMI result Body Mass Index 23.8 Const: Other: Constitutional : Awake, interactive, not in distress Neck : Normal inspection, Supple Cardiovascular : RRR, no JVP, no lower extremity edema Respiratory : good bilateral air entry, no crackles, wheezes or rhonchi Gastrointestinal: soft, lax, Normal bowel sounds, Non tender Skin : Warm, Dry Neurological : Alert & oriented to self and place, No focal deficit Objective Data Active Medications Amlodipine Besylate (Amlodipine Besylate 5 Mg Tablet) 5 mg PO DAILY [facility]; Protocol Last Admin: 04/09/24 09:25 Dose: Not Given Documented By: PRERNA Non-Admin Reason: NPO, procedure Ascorbic Acid (Ascorbic Acid 500 Mg Tablet) 500 mg PO DAILY [facility] Last Admin: 04/09/24 09:25 Dose: Not Given Documented By: PRERNA Non-Admin Reason: NPO, procedure Clopidogrel Bisulfate (Clopidogrel Bisulfate 75 Mg Tablet) 75 mg PO DAILY [facility] Last Admin: 04/09/24 09:25 Dose: Not Given Documented By: PRERNA Non-Admin Reason: NPO, procedure Cyanocobalamin (Cyanocobalamin (Vitamin B-12) 100 Mcg Tablet) 100 mcg PO DAILY [facility] Last Admin: 04/09/24 09:25 Dose: Not Given Documented By: PRERNA Non-Admin Reason: NPO, procedure Lorazepam (Lorazepam 1 Mg Tablet) 1 mg PO TID PRN PRN Reason: Anxiety Last Admin: 04/07/24 22:09 Dose: 1 mg Documented By: CARMEN Magnesium Oxide (Magnesium Oxide 400 Mg Tablet) 400 mg PO DAILY [facility] Last Admin: 04/09/24 09:25 Dose: Not Given Documented By: PRERNA Non-Admin Reason: NPO, procedure Pantoprazole Sodium (Pantoprazole Sodium 40 Mg/10 Ml Vial) 40 mg IVPUSH BID@0630,1630 [facility] Last Admin: 04/09/24 06:32 Dose: 40 mg Documented By: YAW Trazodone HCl (Trazodone Hcl 25 Mg Halftab) 75 mg PO BEDTIME [facility] Last Admin: 04/08/24 21:58 Dose: 75 mg Documented By: YAW Labs 04/09/24 08:09 04/09/24 08:08 Labs: Laboratory Results - last 24 hr 04/09/24 04/09/24 08:08 08:09 MCV 89.6 MCH 30.4 MCHC 34.0 RDW 14.2 Plt Count 377 D MPV 9.3 L Absolute Nucleated RBC 0.000 Nucleated RBC % (auto) 0.0 Anion Gap 15 Estim Creat Clear Calc 50.2 Estimated GFR > 60 Random Glucose 105 Calcium 9.5 D Assessment and Plan (1) Acute on chronic blood loss anemia: Status: Acute (2) Symptomatic anemia: Status: Acute Plan 84F 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, s/p left CEA 02/19/24, ckd III, gerd, htn, sent for hgb 6 on routine labs acute on chronic blood loss anemia Hb impoved to 10.2 after 2 units transfusion Continue IV ppi GI to do EGD and colonoscopy today will continue plavix for now, as risk for stroke currently higher than bleeding risk, if signs of gross bleeding would discontinue follow H&H history of cva with bilateral carotid stenosis, s/p left cea on plavix (asa and statin intolerant), o/p follow up with vascular for right cea ckd III stable htn amlodipine dvt prophylaxis - mechanical due to gi bleed full code patient with significant anemia, requires multiple transfusions, close monitoring, and gi intervention, therefore, expected to require overnight as inpatient Quality Stroke Does the patient have a stroke diagnosis?: No VTE Prior VTE?: No VTE Risk Level:: Medical - moderate - high VTE Device Contraindication: N/A - Device Ordered VTE Drug Contraindication: Treatment Not Tolerated
--- NOTE | 2024-04-09 12:30 | HO.ANESPROP2 ---
[facility] Active Problems Active Problems: All Active Problems Acute on chronic blood loss anemia (Acute) Symptomatic anemia (Acute) Positive fecal occult blood test (Acute) Severe anemia (Acute) Past Medical History Medical History Blindness of left eye Hip fracture, left Femur fracture, left FHx: total knee replacement HTN (hypertension) GERD (gastroesophageal reflux disease) Chronic kidney disease Carotid stenosis, bilateral CVA (cerebral vascular accident) Family History Family history of problems with anesthesia: No Surgical History Surgical History History of right cataract surgery History of left-sided carotid endarterectomy History of Problems with Anesthesia: Yes Social History Social History Household Members: Spouse Housing: House Alcohol intake: current Alcohol intake frequency: holidays/special occasions only Patient Tobacco Use Status: Former Tobacco user service: No Meds Allergies Allergy/AdvReac Type Severity Reaction Status Date / Time aspirin Allergy Hives Verified 04/07/24 15:22 Active Medications: Current Medications Amlodipine Besylate (Amlodipine Besylate 5 Mg Tablet) 5 mg PO DAILY [facility]; Protocol Last Admin: 04/09/24 09:25 Dose: Not Given Ascorbic Acid (Ascorbic Acid 500 Mg Tablet) 500 mg PO DAILY [facility] Last Admin: 04/09/24 09:25 Dose: Not Given Clopidogrel Bisulfate (Clopidogrel Bisulfate 75 Mg Tablet) 75 mg PO DAILY [facility] Last Admin: 04/09/24 09:25 Dose: Not Given Cyanocobalamin (Cyanocobalamin (Vitamin B-12) 100 Mcg Tablet) 100 mcg PO DAILY [facility] Last Admin: 04/09/24 09:25 Dose: Not Given Lorazepam (Lorazepam 1 Mg Tablet) 1 mg PO TID PRN PRN Reason: Anxiety Last Admin: 04/07/24 22:09 Dose: 1 mg Magnesium Oxide (Magnesium Oxide 400 Mg Tablet) 400 mg PO DAILY [facility] Last Admin: 04/09/24 09:25 Dose: Not Given Pantoprazole Sodium (Pantoprazole Sodium 40 Mg/10 Ml Vial) 40 mg IVPUSH BID@0630,1630 [facility] Last Admin: 04/09/24 06:32 Dose: 40 mg Trazodone HCl (Trazodone Hcl 25 Mg Halftab) 75 mg PO BEDTIME DONOVAN Last Admin: 04/08/24 21:58 Dose: 75 mg Home Medications ?Medication ?Instructions ?Recorded ?Confirmed ?Last Taken ?Type amlodipine 10 mg tablet 10 mg PO DAILY 04/07/24 04/07/24 04/07/24 History ascorbic acid (vitamin C) 500 mg 500 mg PO DAILY 04/07/24 04/07/24 04/07/24 History tablet clopidogrel 75 mg tablet 75 mg PO DAILY 04/07/24 04/07/24 04/07/24 History cranberry 400 mg capsule 400 mg PO DAILY 04/07/24 04/07/24 Unknown History cyanocobalamin (vitamin B-12) 100 100 mcg PO DAILY 04/07/24 04/07/24 04/07/24 History mcg tablet lorazepam 1 mg tablet 1 mg PO Q8H anxiety 04/07/24 04/07/24 04/07/24 History magnesium oxide 400 mg (241.3 mg 400 mg PO DAILY 04/07/24 04/07/24 04/07/24 History magnesium) tablet pantoprazole 40 mg tablet,delayed 40 mg PO DAILY@0630 04/07/24 04/07/24 04/07/24 History release trazodone 50 mg tablet 75 mg PO BEDTIME 04/07/24 04/07/24 04/07/24 History Exam Height,Weight and Vital Signs: Height 5 ft 7 in Weight 68.8 kg Last Vital Signs Temp 98.5 F 04/09/24 12:25 Pulse 77 04/09/24 12:25 Resp 16 04/09/24 12:25 BP 152/72 H 04/09/24 12:25 Pulse Ox 93 04/09/24 12:25 O2 Del Method Room Air 04/09/24 12:25 Pertinent Lab Results Pertinent Lab Results: Laboratory Tests 04/07/24 04/07/24 04/07/24 15:45 15:49 16:24 WBC 6.1 RBC 1.99 L Hgb 5.8 L* Hct 18.4 L* MCV 92.5 MCH 29.1 MCHC 31.5 RDW 14.4 Plt Count 293 MPV 9.1 L Immature Gran % (Auto) 0.3 Neut % (Auto) 75.0 H Lymph % (Auto) 12.4 L [place] % (Auto) 9.9 Eos % (Auto) 2.1 Baso % (Auto) 0.3 Lymph # (Auto) 0.8 L [place] # (Auto) 0.6 Eos # (Auto) 0.1 Baso # (Auto) 0.0 Abs Immat Gran (auto) 0.02 Absolute Neuts (auto) 4.6 Absolute Nucleated RBC 0.000 Nucleated RBC % (auto) 0.0 Sodium 135 Potassium 4.6 Chloride 102 Carbon Dioxide 24 Anion Gap 14 BUN 34 H Creatinine 1.20 Estim Creat Clear Calc 35.1 Estimated GFR 43 Random Glucose 99 Fasting Glucose Calcium 8.1 L D Total Bilirubin 0.2 AST 15 ALT 9 Alkaline Phosphatase 88 Total Protein 6.1 L Albumin 3.7 Stool Occult Blood POSITIVE Blood Type A Positive Antibody Screen NEGATIVE Crossmatch See Detail 04/08/24 04/09/24 04/09/24 05:48 08:08 08:09 WBC 5.5 6.9 RBC 2.67 L D 3.35 L D Hgb 7.9 L D 10.2 L D Hct 24.0 L D 30.0 L D MCV 89.9 89.6 MCH 29.6 30.4 MCHC 32.9 34.0 RDW 14.1 14.2 Plt Count 301 377 D MPV 9.3 L 9.3 L Immature Gran % (Auto) Neut % (Auto) Lymph % (Auto) [place] % (Auto) Eos % (Auto) Baso % (Auto) Lymph # (Auto) [place] # (Auto) Eos # (Auto) Baso # (Auto) Abs Immat Gran (auto) Absolute Neuts (auto) Absolute Nucleated RBC 0.000 0.000 Nucleated RBC % (auto) 0.0 0.0 Sodium 137 141 Potassium 4.1 3.7 Chloride 104 103 Carbon Dioxide 25 27 Anion Gap 12 15 BUN 29 H 14 Creatinine 0.91 0.84 Estim Creat Clear Calc 46.3 50.2 Estimated GFR 59 > 60 Random Glucose 105 Fasting Glucose 92 Calcium 8.6 D 9.5 D Total Bilirubin AST ALT Alkaline Phosphatase Total Protein Albumin Stool Occult Blood Blood Type Antibody Screen Crossmatch Airway Mallampati Class: II TM Dist: >3cm Neck ROM: Full Heart: RRR Lungs: CTA Assessment and Plan Assessment Anesthesia Assessment: Anesthesia Plan Discussed Final Anesthetic Review Family History of Problems with Anesthesia: No History of Problems with Anesthesia: Yes NPO: Yes ASA Class: III Final Preanesthetic Review: Meds/Allgs Chart Reviewed, Consent Obtained/Reviewed and Anes Risks/Benef Reviewed Patient Risk: Low Procedure Risk: Low Anesthetic Plan Anesthetic Plan: MAC: Disposition: Standard PACU
--- NOTE | 2024-04-09 12:50 | MHC.SHP ---
Pre-Procedural Eval Section A - 24 Hr Update-Section A only Date of Service: 04/09/24 The patient is an INPATIENT: Yes Changes since office visit: No Cold of Flu in the past 2 weeks, No New Medical Problems, No Changes in Medication and No Patient answered all questions The patient has been examined within 24 hours of the surgical procedure. The History & Physical has been completed within 30 days and I have reviewed it.: Yes Section B - Complete if H&P > 30 days Chief Complaint: GI Bleed Allergies: Allergies Allergy/AdvReac Type Severity Reaction Status Date / Time aspirin Allergy Hives Verified 04/07/24 15:22 Plan I have reviewed the history and physical and performed a pertinent physical examination on my patient. No changes have occurred unless specified. Time Spent With Patient Time: Total time managing care of this patient today ____ minutes.
--- NOTE | 2024-04-09 12:53 | MHC.CM.PN ---
Pt requiring continued acute care, she is having endoscopy, colonoscopy today. DCP: home, self care. CM to follow for DC needs.
--- NOTE | 2024-04-09 13:34 | P.BOP_ITS ---
Brief Operative Note Date of Service: 04/09/24 Pre-op diagnosis: POLO heme pos stool Post-op diagnosis: same Surgeon: Lamin Castro MD Anesthesia: MAC Was an Correctional Officer Chief used for this Procedure?: No Estimated blood loss (mL): 3 Pathology: other Condition: stable Disposition: PACU
--- NOTE | 2024-04-09 13:36 | PM.EVENT ---
Event Note Date of Service: 04/09/24 Event Note: GI EGD and colon are fairly unremarkable. biopsies taken Rec: advance diet f/u bx results iron supplementation follow hct Time Spent With Patient Time: Total time managing care of this patient today ____ minutes.
--- NOTE | 2024-04-09 14:15 | OP_ITS ---
DATE OF SERVICE: 04/09/2024 SURGEON: Lamin Castro MD INDICATIONS: Iron-deficiency anemia and Hemoccult-positive stools. PREOPERATIVE DIAGNOSIS: POSTOPERATIVE DIAGNOSIS: PROCEDURE PERFORMED: Upper endoscopy with biopsy, colonoscopy to the terminal ileum. ESTIMATED BLOOD LOSS: COMPLICATIONS: ANESTHESIA: Monitored anesthesia care. ASSISTANTS: SPECIMENS: DESCRIPTION OF PROCEDURE: A history and physical was performed. The risks and benefits of the procedure were explained to the patient. Informed consent was obtained. The patient was placed in the left lateral decubitus position. The Olympus video gastroscope was introduced into the esophagus, stomach, and duodenum. Examination was performed, and the scope was removed. She was repositioned for colonoscopy. A digital rectal exam was performed and was found to be normal. The Olympus pediatric video colonoscope was introduced into the rectum and advanced to the cecum. The cecum was identified by transillumination, palpation, and identification of ileocecal valve. Examination was performed. The scope was removed. She tolerated both procedures well and returned to recovery area in stable condition. FINDINGS: Upper endoscopy: Esophagus: The esophagus was normal. There was a moderate-sized hiatal hernia. Stomach: The stomach showed no evidence of masses or ulcers. There was some nonspecific erythema in the antrum. Biopsies were obtained from the antrum. No bleeding source was identified. Duodenum: The bulb and 2nd portion were normal. Biopsies were obtained from the 2nd portion of the duodenum. Colonoscopy: The terminal ileum was explored for approximately 15 cm and appeared normal. The visualized colonic mucosa was normal. The quality of the prep was fair with some liquid stool coating the mucosa that was washed and suctioned. No polyps were identified. Retroflexed examination was normal. IMPRESSION: 1. Normal upper endoscopy. 2. Normal colonoscopy. RECOMMENDATION: 1. Follow up the biopsy results. 2. Begin iron supplementation. 3. Monitor hematocrit. MD AIME Felder/SHARMAINEL / [id number] MTDD
[2024-04-09] MEDS: Omeprazole 20 MG CAPSULE.DR PO (16:49)
[2024-04-09] MEDS: LORazepam 1 MG TABLET PO (20:58)
[2024-04-09] MEDS: traZODone HCL 25 MG HALFTAB 75 MG PO (20:58)
[2024-04-10] VITALS: BP 133/62; PULSE 74; RESP 20; TEMP 36.7; O2SAT 96
[2024-04-10 04:00] VITALS: BP 143/66; PULSE 79; RESP 20; TEMP 36.4; O2SAT 94
[2024-04-10] MEDS: Omeprazole 20 MG CAPSULE.DR PO (06:40)
[2024-04-10 07:02] LABS: Hematocrit 28.6 % (37.0-47.0); Hemoglobin 9.5 g/dl (12.0-16.0); Mean Corpuscular HGB Conc 33.2 g/dl (31.0-35.0); Mean Corpuscular Hemoglobin 30.2 pg (27.0-33.0); Mean Corpuscular Volume 90.8 fL (80.0-98.0); Mean Platelet Volume 9.2 fL (9.4-12.3); Platelet Count 364 X10*3/uL (160-400); Red Blood Count 3.15 X10*6/uL (4.20-5.50); Red Cell Distribution Width 14.3 % (11.0-16.0); White Blood Count 7.6 X10*3/uL (4.8-10.8)
[2024-04-10 08:00] VITALS: BP 170/70; PULSE 69; RESP 18; TEMP 36.7; O2SAT 98
[2024-04-10] MEDS: Magnesium Oxide 400 MG TABLET PO (08:42)
[2024-04-10] MEDS: amLODIPine Besylate 5 MG TABLET PO (08:42)
[2024-04-10] MEDS: Cyanocobalamin (Vitamin B-12) 100 MCG TABLET PO (08:42)
[2024-04-10] MEDS: Clopidogrel Bisulfate 75 MG TABLET PO (08:42)
[2024-04-10] MEDS: Ascorbic Acid 500 MG TABLET PO (08:42)
[2024-04-10] MEDS: Sodium Ferric Gluconat/Sucrose 125 MG in 0.9 % Sodium Chloride 100 ML 100 MG IV (09:05)
--- NOTE | 2024-04-10 10:00 | P.DS_ITS ---
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 shun is on plavix for cva, was on eliquis 2.5mg bid for 30 days from mid january to mid february 2024 for dvt prophylaxis sp left tka. patient reports some dark stools while on eliquis, but has since resolved. denies any symptoms. hgb was 9.2 on 02/22/24, decreased to 7.5 on 03/22/24, and now 6. heme occult positive, iron sat low. Hospital course The patient was admitted for acute on chronic blood loss anemia as Hb on presentation was at 5.8 requiring 2 units of PRBCs transfusion with good response as last reading of 9.5 the day of discharge. No reported bleeding while inpatient. She was treated with IV ppi as she was evaluated by GI who did EGD and colonoscopy with normal studies upper and lower with recommendations to continue Pantoprazole and start Iron supplement with a plan to repeat CBC as outpatient and if further dropping consider Capsule endoscopy. For her history of cva with bilateral carotid stenosis will continue plavix for now, as risk for stroke currently higher than bleeding risk as GI agreed as well. o/p follow up with vascular for right cea Discharge plan Continue Pantoprazole daily Start Iron supplement To repeat blood test next week Follow with PCP\dr Castro for biopsy results and if further testing is needed (Capsule endoscopy) Time Attestation Discharge Coordination Time (in mins): 41 Quality: Safe Use of Opioids Does Pt have an Active Cancer Diagnosis on the Problem List?: No Quality: Stroke Does the patient have a stroke diagnosis?: No Physical Exam Vital Signs: Vital Signs: Last Vital Signs Temp 98.0 F 04/10/24 08:00 Pulse 69 04/10/24 08:00 Resp 18 04/10/24 08:00 BP 170/70 H 04/10/24 08:00 Pulse Ox 98 04/10/24 08:00 O2 Del Method Room Air 04/10/24 08:00 BMI result Body Mass Index 23.8 Const: Other: Constitutional : Awake, interactive, not in distress Neck : Normal inspection, Supple Cardiovascular : RRR, no JVP, no lower extremity edema Respiratory : good bilateral air entry, no crackles, wheezes or rhonchi Gastrointestinal: soft, lax, Normal bowel sounds, Non tender Skin : Warm, Dry Neurological : Alert & oriented to self and place, No focal deficit DS: Data Data Completed and Pending Pending studies at discharge: Pending at discharge 04/09/24 13:11 Surgical [PTH] Routine Labs on day of discharge: Laboratory Results - last 24 hr 04/10/24 06:18 WBC 7.6 RBC 3.15 L Hgb 9.5 L Hct 28.6 L MCV 90.8 MCH 30.2 MCHC 33.2 RDW 14.3 Plt Count 364 MPV 9.2 L Absolute Nucleated RBC 0.000 Nucleated RBC % (auto) 0.0 Discharge Plan Discharge Anticipated Discharge Date/Time: 04/10/24 09:57 Patient Disposition: Home, Self-Care Discharge Diagnosis: Symptomatic acute anemia blood loss anemia Referrals: Lee Bolden MD [Primary Care Provider] - 1 Week Discharge Medications: New ferrous sulfate 324 mg (65 mg iron) tablet,delayed release (DR/EC) 324 mg PO DAILY Qty: 90 0RF Continued cyanocobalamin (vitamin B-12) 100 mcg tablet 100 mcg PO DAILY trazodone 50 mg tablet 75 mg PO BEDTIME clopidogrel 75 mg tablet 75 mg PO DAILY magnesium oxide 400 mg (241.3 mg magnesium) tablet 400 mg PO DAILY ascorbic acid (vitamin C) 500 mg tablet 500 mg PO DAILY amlodipine 10 mg tablet 10 mg PO DAILY lorazepam 1 mg tablet 1 mg PO Q8H cranberry 400 mg Capsule 400 mg PO DAILY Rx Instructions: administer with a meal pantoprazole 40 mg tablet,delayed release (DR/EC) 40 mg PO DAILY@0630 Qty: 90 0RF Discharge Orders: Discharge Order (Routine); Ordered 04/10/24 Ordered By: Chanell Izquierdo Diet: Advance to usual diet Activity on Discharge: As tolerated Stand Alone Forms: Patient Portal Discharge page Print Language: Yi Other Ambulatory Orders: Complete Blood Count Auto Diff (Routine) Timeframe: 5 Days Facility: [facility] - Location: Laboratory Ordered By: Chanell Izquiedro Care Plan Goals: Continue Pantoprazole daily Start Iron supplement To repeat blood test next week Follow with PCP\dr Castro for biopsy results and if further testing is needed (Capsule endoscopy) Health Concerns: Read below Plan of Treatment: Read below Assessment: Read below
--- NOTE | 2024-04-10 11:37 | MHC.CM.PN ---
Patient has been medically cleared for dc to home today, self care.Last IMM addressed on 04/08/2024.
[2024-04-10 12:00] VITALS: BP 147/74; PULSE 75; RESP 17; TEMP 36.7; O2SAT 98
--- NOTE | 2024-04-10 16:06 | HO.POSTANES ---
Post Anesthesia Evaluation Post Anesthesia Evaluation Date of Service: 04/10/24 Vital Signs: Vital Signs Temp Pulse Resp BP Pulse Ox O2 Del Method 04/10/24 12:00 98.0 F 75 17 147/74 H 98 Room Air, [place] Nasal Cannula 04/10/24 08:00 98.0 F 69 18 170/70 H 98 Room Air Anesthesia: Monitored Mental Status: Awake Pain Control: Satisfactory Nausea/Vomiting: None Hydration: Adequate Anesthesia-Related Issues: No Anes. Related Issues
== END 2024-04-10 12:44 | disposition home or self-care (01) | DRG 812 ==
LOC: HO.ED 17:23 → HO.EDOVER 17:39 → HO.IMC 19:47
PROVIDERS: Internal Medicine Gastroenterology; Physician Assistant; Admitting Provider Internal Medicine; Emergency Provider Emergency Medicine Emergency Medical Services; PCP Internal Medicine; Visit Provider Student in an Organized Health Care Education/Training Program
PROC: 0DB78ZX Excision of Stomach, Pylorus, Via Natural or Artificial Opening Endoscopic, Diagnostic (ICD-10-PCS; principal; 2024-04-09 13:20)
DX: D62 Acute posthemorrhagic anemia (principal); N18.30 Chronic kidney disease, stage 3 unspecified; I12.9 Hypertensive chronic kidney disease with stage 1 through stage 4 chronic kidney disease, or unspecified chronic kidney disease; D63.1 Anemia in chronic kidney disease; R19.5 Other fecal abnormalities; Z87.891 Personal history of nicotine dependence; Z79.02 Long term (current) use of antithrombotics/antiplatelets; Z79.899 Other long term (current) drug therapy
CPT/HCPCS: 36415; 80048; 80053; 82272; 82607; 82728; 82746; 83540; 85025; 85027; 86850; 86900; 86901; 86923; 88305; 88313; 88342; 93005; 99285; C9113; J2704; J2916; P9016

== ENCOUNTER → 2024-04-07 16:56 | Outpatient (BNV) | payer MEDICARE, SELFPAY | PROVIDERS: Admitting Provider Internal Medicine; Emergency Provider Emergency Medicine Emergency Medical Services; PCP Internal Medicine; Visit Provider Internal Medicine Cardiovascular Disease | DX: I49.9 Cardiac arrhythmia, unspecified (principal) | CPT/HCPCS: 93010 ==

== ENCOUNTER → 2024-04-07 17:33 | Outpatient (BNV) | payer MEDICARE, SELFPAY | PROVIDERS: Admitting Provider Internal Medicine; Emergency Provider Emergency Medicine Emergency Medical Services; PCP Internal Medicine; Visit Provider Internal Medicine | DX: D62 Acute posthemorrhagic anemia (principal); I12.9 Hypertensive chronic kidney disease with stage 1 through stage 4 chronic kidney disease, or unspecified chronic kidney disease; N18.30 Chronic kidney disease, stage 3 unspecified | CPT/HCPCS: 99223; 99232; 99233; 99239 ==

== ENCOUNTER 2024-04-16 10:23 | Outpatient (REF) | payer MEDICARE, SELFPAY ==
[2024-04-16 13:29] LABS: MANUAL DIFF FLAG NO
[2024-04-16 13:44] LABS: Basophils Percent Auto 0.4 % (0-2); Eosinophils Absolute Auto 0.1 X10*3/uL (0.0-0.4); Hematocrit 32.3 % (37.0-47.0); Hemoglobin 10.1 g/dl (12.0-16.0); Imm Gran Abs Auto 0.04 X10*3/uL (0.00-0.03); Imm Gran Pct Auto 0.6 % (0.0-0.4); Lymphocytes Absolute Auto 0.7 X10*3/uL (1.2-4.9); Lymphocytes Percent Auto 10.1 % (20-40); Mean Corpuscular HGB Conc 31.3 g/dl (31.0-35.0); Mean Corpuscular Volume 95.8 fL (80.0-98.0); Mean Platelet Volume 9.6 fL (9.4-12.3); Monocytes Absolute Auto 0.5 X10*3/uL (0.1-1.2); Monocytes Percent Auto 7.4 % (2-11); Neutrophils Absolute Auto 5.7 x10*3/uL (2.0-8.3); Neutrophils Percent Auto 79.5 % (45-73); Platelet Count 416 X10*3/uL (160-400); Red Blood Count 3.37 X10*6/uL (4.20-5.50); Red Cell Distribution Width 15.4 % (11.0-16.0); White Blood Count 7.2 X10*3/uL (4.8-10.8)
== END 2024-04-16 10:24 | disposition home or self-care (01) ==
LOC: HO.MANLDS 10:23
PROVIDERS: Visit Provider Internal Medicine
DX: D64.9 Anemia, unspecified (principal)
CPT/HCPCS: 36415; 85025

== ENCOUNTER 2024-04-28 10:17 | Outpatient (REF) | payer MEDICARE, SELFPAY ==
[2024-04-28 13:02] LABS: MANUAL DIFF FLAG NO
[2024-04-28 13:29] LABS: Basophils Percent Auto 0.4 % (0-2); Eosinophils Absolute Auto 0.1 X10*3/uL (0.0-0.4); Eosinophils Percent Auto 1.6 % (0-4); Hematocrit 31.8 % (37.0-47.0); Hemoglobin 9.8 g/dl (12.0-16.0); Imm Gran Abs Auto 0.02 X10*3/uL (0.00-0.03); Imm Gran Pct Auto 0.3 % (0.0-0.4); Lymphocytes Absolute Auto 0.6 X10*3/uL (1.2-4.9); Lymphocytes Percent Auto 7.9 % (20-40); Mean Corpuscular HGB Conc 30.8 g/dl (31.0-35.0); Mean Corpuscular Hemoglobin 29.5 pg (27.0-33.0); Mean Corpuscular Volume 95.8 fL (80.0-98.0); Mean Platelet Volume 10.1 fL (9.4-12.3); Monocytes Absolute Auto 0.5 X10*3/uL (0.1-1.2); Monocytes Percent Auto 6.6 % (2-11); Neutrophils Absolute Auto 5.8 x10*3/uL (2.0-8.3); Neutrophils Percent Auto 83.2 % (45-73); Platelet Count 336 X10*3/uL (160-400); Red Blood Count 3.32 X10*6/uL (4.20-5.50); Red Cell Distribution Width 15.7 % (11.0-16.0); White Blood Count 6.9 X10*3/uL (4.8-10.8)
== END 2024-04-28 10:18 | disposition home or self-care (01) ==
LOC: HO.MANLDS 10:17
PROVIDERS: Visit Provider Internal Medicine
DX: Z13.89 Encounter for screening for other disorder (principal)
CPT/HCPCS: 36415; 85025

== ENCOUNTER 2025-07-06 12:06 | Outpatient (REF) | payer MEDICARE, SELFPAY ==
--- OUTSIDE RECORDS SUMMARY | 2024-04-09 09:20 | XMS_ITS ---
Author Organization [facility] Address [address] [place] [phone] Care Team Providers Care Hat [employer]im [employer] Crown Laminating Operator Name Role Phone Lee Bolden Primary Care Provider Lamin Hess Jr REASON FOR VISIT FE DEF ANEMIA, HEME POSITIVE STOOLS Encounters Encounter Location Date Provider Diagnosis [facility] Inpatient [address], [place] [id number] 04/09/2024 Lamin Castro Jr Plan Of Treatment No Information Progress Notes * JUANI WHYTEDOB:1939 (85 yo F)Acc No.[id number]:04/09/2024 EGD and COL/MAC Patient: JUANI MERRILL Provider: Sin Castro MD :1940 A ge:84 Y S ex:Female Date:04/09/2024 Address:[address] [place] [address] [id number] Pcp:Lee Bolden Subjective: * Chief Complaints: * [...] Date: 04/09/2024 Generated for Jules mejia/Paula/Tamicaitting on: 0 07/06/2025 03:34 PM EDT
--- OUTSIDE RECORDS SUMMARY | 2025-07-06 15:34 | XMS_ITS | Encounter Summary ---
Author Organization [facility] Address [address] [place] [address] Phone Care Team Providers Care Rail Car Operator Name Role Phone Lee Bolden DO Primary Care Provider [phone] Encounter Details Date Type Department Care Team ([facility] st Contact Info) Description 07/06/2025 Transcribe Orders Virtual Department [address] [place] [address] Lee Bolden DO [address] [place] [address] [place] [address] [email or web address] Osteopenia after menopause (Primary Dx); Asymptomatic menopausal state; Other specified disorders of bone density and structure, unspecified site; Encounter for screening for malignant neoplasm of breast, unspecified screening modality; Encounter for screening mammogram for malignant neoplasm of breast Social History Tobacco Use Types Packs/Day Years Used Date Smoking Tobacco: Former Cigarettes Q uit: 2009 Smokeless Tobacco: Never Alcohol Use Standard Drinks/Week Comments No 0 (1 standard drink = 0.6 oz pur e alcohol) Education Answer Date Recorded Are you interested in more education? Not on ashwin e 02/14/2023 Are you concerned about learning? Not on file 02/14/2023 No 02/14/2023 No 02/14/2023 Digital Access Answer Date Recorded No 03/15/2023 No 03/15/2023 No 03/15/2023 Reliable internet access at home? Not on file 03/15/2023 Device with a working camera? Not on file Comments No Sex and Gender Information Value Date Recorded Sex Assigned at Not on file Legal Sex Female 10:11 PM EDT Gender Identity Not on file Sexual Orientation Not on file documented as of this encounter Plan of Treatment Scheduled Orders Name Type Priority Associated Diagnoses Orde r Schedule DXA Screening Imaging Routine Osteopenia after menopause Asymptomatic menopausal state Other specified disorders of bone density and structure, unspecified site Expected: 07/06/2025, Expires: 07/06/2027 Mammogram Screening (Bilateral) Imaging Routine Encounter For Screening For Malignant Neoplasm Of Breast, Unspecified Screening Modality Encounter for screening mammogram for malignant neoplasm of breast Expected: 07/06/2025, Expires: 07/06/2027 documented as of this encounter Visit Diagnoses Diagnosis Osteopenia after menopause- Primary Asymptomatic menopausal state Other specified disorders of bone density and structure, unspecified site Encounter for screening for malignant neoplasm of breast, unspecified screening modality documented in this encounter Care Teams Rail Car Operator Relationship Specialty Start Date End Date Lee Bolden DO [email or web address] PCP - General 08/07/17 documented as of this encounter Additional Source Comments The information contained in this document represents components of the legal health record. It is not the complete legal health record.[facility]
--- OUTSIDE RECORDS SUMMARY | 2025-07-06 15:34 | XMS_ITS | Patient Health Record ---
Author Organization [facility] Address [address] [place] [id number] Care Team Providers Care Silk Brusher Name Role Phone Lee Bolden Primary Care Provider Lamin Hess Jr Unavailable Reason For Referral No Information Problems Problem Type SNOMED Code ICD Code Onset Dates Problem Status W/U Status Risk Notes Problem Iron deficiency anemia (44499379) Iron deficiency anemia (D50.9) Active confirmed Plan Of Treatment No Information Insurance Providers Payer Name Payer Address Payer Phone Subscriber Number Group Number Insured Name Patient Relationship to Insured Coverage Start Date Coverage End Date MEDICARE OF [place] [address] [facility] [address] [id number] JUANI WHYTE Self - patient is the insured MED[employer] ATT[employer] CLAIMS [address] [place] [address] [phone] [id number] JUANI WHYTE Self - patient is the insured
--- OUTSIDE RECORDS SUMMARY | 2025-07-06 15:34 | XMS_ITS | Clinical Summary ---
Author Organization [facility] Address [address] [place] [id number] Phone Care Team Providers Care Hauling Contractor Name Role Phone Lee Bolden DO Primary Care Provider [phone] Allergies Active Allergy Reactions Criticality Noted Date Comments Amoxicillin 09/29/2024 Other Reaction(s): Unknown Aspirin Rash Low 08/27/2017 Atenolol 09/29/2024 Other Reaction(s): unknown Atorvastatin 09/29/2024 Other Reaction(s): unknown Colesevelam 09/29/2024 Other Reaction(s): unknown Ezetimibe 09/29/2024 Other Reaction(s): unknown Fenofibrate 09/29/2024 Other Reaction(s): unknown Sertraline 09/29/2024 Other Reaction(s): unknown Medications cranberry 500 mg Cap Take 500 mg by mouth daily. Active vitamin A,C & [id number]-[id number] ls (VISION FORMULA, WITH LUTEIN,) 1,000 unit-200 mg-60 unit-2 mg Tab Take 1 tablet by mouth daily. Active cyanocobalamin, vitamin B-12, 100 MCG tablet 1 tablet qd Act omaira amLODIPine (NORVASC) 5 MG tablet Take 10 mg by mouth daily. Active clopidogrel (PLAVIX) 75 mg tablet Take 75 mg by mouth daily. Active LORazepam (ATIVAN) 0.5 MG tablet Take 0.5 mg by mouth as needed for anxiety. Active cholecalciferol (VITAMIN D3) 1,000 unit tablet Take 1,000 Units by mouth daily. Active ascorbic acid, vitamin C, (VITAMIN C) 500 MG tablet Take 500 mg by mouth daily. Active hylan polymers A and B (SYNVISC) 16 mg/2 mL intra-articular injection syringe Inject 2 mL (16 mg total) into the articular space once a week. 2 mL 0 Active Additional Information Patient not taking.Reported on 09/29/2024 traZODone (DESYREL) 50 MG tablet trazodone 50 mg tablet TAKE 1 TABLET BY MOUTH EVERY DAY IN THE EVENING Active Active Problems Problem Noted Date Diagnosed Date CKD stage 3a, GFR 45-59 ml/min 09/29/2024 LETTY (generalized anxiety disorder) 09/29/2024 GERD without esophagitis 09/29/2024 Hyperlipidemia 07/20/2024 S/P carotid endarterectomy 07/20/2024 Trigger index finger of right hand 02/14/2020 Assessment & Plan (12/19/2021 10:44 PM EST): Injection very helpful in past Repeated injection today-please see procedure note Assessment & Plan (09/11/2020 10:57 AM EST): Inject with cortisone today. Assessment & Plan (08/07/2020 11:13 AM EDT): To new current pain medication and set up for bilateral Synvisc injections and administer a cortisone injection into the flaring painful left knee today. Assessment & Plan (02/14/2020 10:14 AM EDT): Relative rest, local warmth, and stretches in a basin of warm water 3 times daily as needed. Possible injection on next visit. Cerebrovascular accident (CVA) 08/19/2018 Hypertension 01/20/2018 Assessment & Plan (08/24/2019 2:55 PM EST): BP 120/70 today in the right arm sitting. Continue current medication. Assessment & Plan (07/07/2019 11:32 AM EDT): Under good control on current medications and attention to low-sodium diet. Avoid NSAIDs. Assessment & Plan (04/06/2019 11:16 AM EDT): Understands the need for medication compliance, and low-sodium diet. Assessment & Plan (09/28/2018 11:25 AM EST): Under good control on current medications. Assessment & Plan (01/20/2018 12:49 PM EDT): This is under reasonably good control on current medication. She Synvisc stay on a low-sodium diet. My blood pressure today was 132/76 in the right arm sitting. 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 Assessment & Plan (01/29/2021 11:39 AM EDT): Attempted aspiration and corticosteroid injection today. Assessment & Plan (09/25/2020 10:04 AM EST): Third and final Synvisc injection today. Assessment & Plan (09/11/2020 10:57 AM EST): First injection of Synvisc today. Assessment & Plan (08/07/2020 11:13 AM EDT): Continue current medication regimen and set up for bilateral Synvisc injections. Assessment & Plan (02/14/2020 10:15 AM EDT): Reviewed x-rays of both knees indicating severe end-stage medial compartment osteoarthritis with exuberant osteophytosis and medial compartment collapse. Ultimately total joint arthroplasty would be the most reasonable approach but comorbidities and sick and ongoing pandemic prevent that at this time. She failed Visco supplementation. She does not find tramadol that helpful. She will continue to work on quadricep strengthening. She will come in next week for cortisone injections. All questions were answered. Assessment & Plan (09/22/2019 4:29 PM EST): Quadricep strengthening and we will arrange Visco supplementation for her. She will have a cortisone injection today. Assessment & Plan (08/24/2019 2:56 PM EST): X-rays of left and right knee were reviewed done last week. Severe end-stage medial compartment osteoarthritis with exuberant osteophytosis, subchondral cyst formation, subchondral sclerosis and complete collapse of the medial compartment. Interestingly, she is using less tramadol and more Tylenol but staying under 3000 mg daily and this seems to suffice. Talked about venturing into use Visco supplementation and I feel that we should do that if she is not able to make it till mid September (3 months) for another set of cortisone injections. Her comorbid conditions I believe precludes safe surgical approach to this. Assessment & Plan (07/07/2019 11:32 AM EDT): Advanced tricompartmental osteoarthritic pain will continue to be treated with quadricep strengthening, contrast baths, tramadol as needed and intra-articular steroids today. Assessment & Plan (04/06/2019 11:16 AM EDT): Reviewed x-rays of both left and right knee showing advanced tricompartmental degenerative disease. In addition to quadricep strengthening and well fitting shoes and tramadol she will have intra-articular steroid injection today. Assessment & Plan (01/04/2019 10:49 AM EDT): Inject right knee today. Discussed quadricep strengthening, well fitting supportive shoes with good shock absorption and fall and fracture prevention strategies. Assessment & Plan (09/28/2018 11:24 AM EST): He will continue on tramadol as needed for pain relief as well as quadricep strengthening and well fitting supportive shoes with good shock absorption and a cortisone injection today intra-articularly. Assessment & Plan (06/25/2018 11:43 AM EDT): Severe osteoarthritis in this knee. Medications will remain unchanged. She will have a pain relieving cortisone injection today. Assessment & Plan (04/14/2018 10:45 AM EDT): Patient is having a flare up of right knee osteoarthritis which be treated with a cortisone injection today. We had a full discussion today which lasted about 50% of our 15 minute visit going over the natural history of progressively osteoarthritis, the need for well fitting supportive shoes with good shock absorption, weight control, and quadriceps strengthening. She asked about surgical intervention but I told her that as long as she is getting significant relief from the cortisone injections that the only procedure that would be helpful as total knee arthroplasty which she is not ready for yet. Assessment & Plan (01/20/2018 12:50 PM EDT): Quadriceps strengthening, continue his current pain medication, and a cortisone injection will be done today. Assessment & Plan (08/27/2017 9:41 AM EST): She will continue current medication regimen, we will quadriceps strengthening and ID as well fitting supportive shoes and home exercise program. Primary osteoarthritis of left knee 08/27/2017 Assessment & Plan (03/21/2022 10:55 AM EDT): Exam and XR consistent with OA Injection today-see procedure note Injections may be repeated 3-4 x year prn if helpful Consider visco supplementation injections Assessment & Plan (12/19/2021 10:43 PM EST): Exam and XR consistent with OA Injection today-see procedure note Injections may be repeated 3-4 x year prn if helpful Consider visco supplementation injections Assessment & Plan (05/07/2021 12:00 PM EDT): Painful flare will be treated with intra-articular cortisone today. Assessment & Plan (01/29/2021 11:40 AM EDT): Attempted aspiration and corticosteroid injection today. Assessment & Plan (09/25/2020 10:04 AM EST): Third and final Synvisc injection today. Assessment & Plan (09/11/2020 10:57 AM EST): First injection of Synvisc today. Assessment & Plan (05/08/2020 10:52 AM EDT): Aspirate and inject cortisone into the left knee today which is very arthritic and is flaring with pain. Assessment & Plan (02/14/2020 10:15 AM EDT): See above plans for right knee. Assessment & Plan (09/22/2019 4:29 PM EST): Cortisone injection today followed by plans for Visco supplementation. Assessment & Plan (07/07/2019 11:32 AM EDT): Intra-articular steroid injection today followed by continuance of current medication regimen. Assessment & Plan (04/06/2019 11:16 AM EDT): Advanced osteoarthritic pain will continue to be treated with tramadol, fall and fracture prevention strategies and intra-articular steroids every 3 to 4 months. Assessment & Plan (01/04/2019 10:49 AM EDT): Flaring left and right knee osteoarthritis will be treated with local injection therapy today. Medications remain unchanged. Assessment & Plan (09/28/2018 11:25 AM EST): Quadricep strengthening, well fitting shoes, external support, weight reduction and cortisone injection today. Assessment & Plan (06/25/2018 11:43 AM EDT): Increasing pain from tricompartmental osteoarthritis. She will continue current medications and had a pain relieving cortisone injection today. Assessment & Plan (04/14/2018 10:44 AM EDT): Patient is having a flare up of left knee osteoarthritis and she will be treated with local cortisone injection today. Assessment & Plan (01/20/2018 12:50 PM EDT): Quadriceps strengthening, well fitting supportive shoes and a cortisone injection today. Assessment & Plan (11/03/2017 9:33 AM EST): The patient will receive a pain relieving injection of cortisone today in both the right and left knees. Quadriceps strengthening, well fitting shoes, and continue his current medication as well as avoidance of fall and fracture strategies were discussed. Assessment & Plan (08/27/2017 9:41 AM EST): Referred to instructions for right knee Encounters Date Type Department Care Team Description 07/06/2025 Transcribe Orders [facility] Department [address] [place] [address] Lee Bolden, Osteopenia after menopause (Primary Dx); Asymptomatic menopausal state; Other specified disorders of bone density and structure, unspecified site; Encounter for screening for malignant neoplasm of breast, unspecified screening modality; Encounter for screening mammogram for malignant neoplasm of breast from Last 3 Months Immunizations Immunization Administration Dates Next Due COVID-19 (Pre-08/11) Pfizer Vaccine, mRNA, PF ,11/24/2020 Pneumococcal conjugate PCV13 06/07/2020 Pneumococcal polysaccharide PPSV23 06/19/2021, Family History Medical History Relation Comments Breast cancer Paternal Aunt Relation Status Comments Paternal Aunt Social History Tobacco Use Types Packs/Day Years [...] on file Sexual Orientation Not on file Last Filed Vital Signs Vital Sign Reading Time Taken Comments Blood Pressure 166/90 09/29/2024 12:02 PM EST Pulse 91 09/29/2024 12:02 PM EST Temperature 36.7 C (98 F) 09/29/2024 12:02 PM EST Respiratory Rate 18 09/29/2024 12:02 PM EST Oxygen Saturation 100% 09/29/2024 12:02 PM EST Inhaled Oxygen Concentration - - Weight 67.1 kg (148 lb) 03/21/2022 10:11 AM EDT Height 171.5 cm (5' 7.52 ) 03/21/2022 10:11 AM E DT Body Mass Index 22.82 03/21/2022 10:11 AM EDT Plan of Treatment Health Maintenance Due Date Last Done Comments Adult Td,Tdap Booster 1942 DEPRESSION SCREENING 1954 LIPID PANEL 02/02/1960 ZOSTER VACCINES (1 of 2) 02/02/1992 OSTEOPOROSIS SCREENING INITI AL (ONE-TIME) 2007 RSV VACCINE (1 - 1-dose 75+ series) 2017 BLOOD PRESSURE 03/30/2025 09/29/2024 INFLUENZA VACCINE (#1) 2025 COVID-19 VACCINE (2024-2 6 season) 2025 08/19/2021, 12/19/2020, 11/24/2020 PNEUMOCOCCAL VACCINES (50+ years) Completed 06/19/2021, 06/07/2021, 06/07/2020 HEPATITIS A VACCINES Aged Out No long er eligible based on patient's age to complete this topic HIB VACCINES Aged Out No longer eligi ble based on patient's age to complete this topic MENINGOCOCCAL VACCINES (ACWY) Aged Out No longer eligible based on patient's age to complete this topic MENINGOCOCCAL VACCINES (B) Aged Out N o longer eligible based on patient's age to complete this topic Medical Devices Not on file Insurance MEDICARE PART A & B [employer] SUPPLEMENT MEDICARE PART A & B [employer] SUPPLEMENT MEDICARE PART A & B [facility] MEDEX SUPPLEMENT MEDICARE PART A & B [employer] MEDEX SUPPLEMENT MEDICARE PART A & B [employer] SUPPLEMENT MEDICARE PART A & B [employer] SUPPLEMENT MEDICARE PART A & B [employer] SUPPLEMENT MEDICARE PART A & B [employer] SUPPLEMENT MEDICARE PART A & B [employer] SUPPLEMENT Care Teams Hauling Contractor Relationship Specialty Start Date End Date Lee Bolden DO PCP - General 08/07/17 Additional Source Comments The information contained in this document represents components of the legal health record. It is not the complete legal health record.[facility]
--- OUTSIDE RECORDS SUMMARY | 2025-07-06 15:34 | XMS_ITS | Encounter Summary ---
Author Organization [facility] Address [address] [place] [address] Phone Care Team Providers Care Gray Tender Name Role Phone Lee Bolden DO Primary Care Provider [phone] Encounter Details Date Type Department Care Team (Late st Contact Info) Description 10/30/2018 Procedure Pass [facility] Endoscopy Admitting Dept Virtual Department [address] [place] [address] Social History Tobacco Use Types Packs/Day Years Used Date Smoking Tobacco: Former Cigarettes Q uit: 2010 Smokeless Tobacco: Never Alcohol Use Standard Drinks/Week Comments No 0 (1 standard drink = 0.6 oz pur e alcohol) Comments No Sex and Gender Information Value Date Recorded Sex Assigned at Not on file Legal Sex Female 10:11 PM EDT Gender Identity Not on file Sexual Orientation Not on file documented as of this encounter Plan of Treatment Not on file documented as of this encounter Visit Diagnoses Not on filedocumented in this encounter Care Teams Gray Tender Relationship Specialty Start Date End Date Lee Bolden DO PCP - General 08/07/17 documented as of this encounter Additional Source Comments The information contained in this document represents components of the legal health record. It is not the complete legal health record.[facility]
--- OUTSIDE RECORDS SUMMARY | 2025-07-06 15:34 | XMS_ITS | Encounter Summary ---
Author Organization [facility] Address [address] [facility] [address] [place] [address] Phone Care Team Providers Care Game Design Instructor Name Role Phone ColinjoyceLee DO Primary Care Provider [phone] Encounter Details Date Type Department Care Team ([facility] st Contact Info) Description 08/03/2018 Ancillary Orders Virtual Department [address] [place] [address] Lee Bolden DO [address] [facility] [place] [address] [email or web address] Breast screening Social History Tobacco Use Types Packs/Day Years Used Date Smoking Tobacco: Former Cigarettes Q uit: 2009 Smokeless Tobacco: Never Alcohol Use Standard Drinks/Week Comments No 0 (1 standard drink = 0.6 oz pur e alcohol) Comments Unknown Sex and Gender Information Value Date Recorded Sex Assigned at Not on file Legal Sex Female 10:11 PM EDT Gender Identity Not on file Sexual Orientation Not on file documented as of this encounter Plan of Treatment Not on file documented as of this encounter Results * BI MAMMOGRAM SCREENING WITH TOMOSYNTHESIS WITH CAD (BILATERAL) (09/11/2018 9:41 AM EST) Anatomical Region Laterality Modality Breast Left, Breast Right, Breast Bilateral Bila teral Mammography 09/11/2018 1:25 PM EST Impressions 09/11/2018 1:27 PM EST No mammographic evidence of malignancy. RECOMMENDED FOLLOWUP: Routine screening mammography is recommended, as clinically appropriate. The results will be sent to the patient. BI-RADS CATEGORY: 1 - Negative. BREAST DENSITY: The breast tissue is almost entirely fat. POS - CDHMAMA Narrative 09/11/2018 1:27 PM EST BI MAMMOGRAM SCREENING WITH TOMOSYNTHESIS WITH CAD (BILATERAL) HISTORY: Screening. COMPARISON: Prior studies dating back to 2011, most recently 06/30/2017. TECHNIQUE: Digital breast tomosynthesis was performed in CC and MLO projections. Reconstructed 2-D C-views generated from the tomosynthesis images. Images interpreted in conjunction with R-2 Image Doctor Of Nurse Anesthesia computer-aided detection (CAD). FINDINGS: BREAST DENSITY: The breasts are nearly entirely fatty replaced. There are no suspicious masses, suspicious areas of architectural distortion or suspicious clusters of microcalcifications. Stable fibroglandular pattern compared with prior mammograms. Procedure Note Sherri Jennings MD - 09/11/2018 BI MAMMOGRAM SCREENING WITH TOMOSYNTHESIS WITH CAD (BILATERAL) HISTORY: Screening. COMPARISON: Prior studies dating back to 2011, most recently 06/30/2017. TECHNIQUE: Digital breast tomosynthesis was performed in CC and MLOprojections. Reconstructed 2-D C-views generated from the tomosynthesisimages. Images interpreted in conjunction with R-2 Image Checkercomputer-aided detection (CAD). FINDINGS: BREAST DENSITY: The breasts are nearly entirely fatty replaced. There are no suspicious masses, suspicious areas of architecturaldistortion or suspicious clusters of microcalcifications. Stable fibroglandular pattern compared with prior mammograms. IMPRESSION: No mammographic evidence of malignancy. RECOMMENDED FOLLOWUP: Routine screening mammography is recommended, asclinically appropriate. The results will be sent to the patient. BI-RADS CATEGORY: 1 - Negative. BREAST DENSITY: The breast tissue is almost entirely fat. POS - CDHMAMA Lee Bolden DO IMG MG EXAMS Final Result documented in this encounter Visit Diagnoses Diagnosis Breast screening Breast screening, unspecified Breast screening Breast screening, unspecified documented in this encounter Care Teams Game Design Instructor Relationship Specialty Start Date End Date Lee Bolden DO PCP - General 08/07/17 documented as of this encounter Additional Source Comments The information contained in this document represents components of the legal health record. It is not the complete legal health record.[facility]
--- OUTSIDE RECORDS SUMMARY | 2025-07-06 15:34 | XMS_ITS ---
Author Organization [facility] Care Team Providers Care Cesspool Cleaner Name Role Phone Sergey Angulo Unavailable Unavailable Grippin, Bonnie Unavailable Unavailable Levheim, Shahnaz Unavailable Unavailable Allergies and adverse reactions Code CodeSystem Substance Reaction Severity StartDate Concern Status 1191 RXNORM Aspirin Unknown 02/04/2023 active Care Team Name Role Address Phone Organization Dates Sergey Angulo PCP [address], [address], [place] (Office): : [facility] 02/04/2023 - 03/07/2023 Bonnie Grippin [address], [address], [place] (Office): : [facility] 02/04/2023 - 03/07/2023 Shahnaz Levheim 38 [facility] [address] [place] [address], [address], [place] (Office): [facility] 02/04/2023 - 03/07/2023 Immunizations Immunization Status Vaccine Details Vaccine Code CodeSystem Date Notes TB 2 Step Mantoux Skin Test completed tuberculin skin test; unspecified formulation lotNumber: [id number] expiry: 03/27/2025 Mfg: EPSTEIN OFI PASTEUR Given 0.1 Right Forearm intradermally Step 2 of Multi-step with next step required 98 CVX created date: 02/19/2023 consent date: 02/19/2023 administer ed date: 02/19/2023 Educated by Karishma Gill on 02/19/2023 PPSV23 (Previous Pneumococcal Polysaccharide)V accine completed pneumococcal polysaccharide vaccine, 23 valent 33 CVX created date: 02/11/2023 administer ed date: 06/19/2021 SARS-COV-2 (COVID-19) completed SARS-COV-2 (COVID-19) vaccine, mRNA, spike protein, LNP, preservative free, 30 mcg/0.3mL dose Step 2 of Multi-step with next step required 208 CVX created date: 02/11/2023 administer ed date: 12/19/2020 SARS-COV-2 (COVID-19) completed SARS-COV-2 (COVID-19) vaccine, mRNA, spike protein, LNP, preservative free, 30 mcg/0.3mL dose Mfg: pfizer Step 1 of Multi-step with next step required 208 CVX created date: 02/11/2023 administer ed date: 11/24/2019 Pfizer Covid-19 Booster (SARS-COV-2) vaccine completed SARS-COV-2 (COVID-19) vaccine, mRNA, spike protein, LNP, preservative free, 30 mcg/0.3mL dose 208 CVX created date: 02/11/2023 administer ed date: 08/19/2021 Mental Status Section Date Assessment Total Score Description 03/07/2023 BIMS 15 cognitively int act CAM 0 No delirium ind icated PHQ-9 00 02/10/2023 BIMS 15 cognitively int act CAM 0 No delirium ind icated PHQ-9 00 Problems Problem # Description Date of onset Resolved Date Code CodeSystem Concern Status 1 DISPLACED INTERTROCHANTERIC FRACTURE OF LEFT FEMUR, SUBSEQUENT ENCOUNTER FOR CLOSED FRACTURE WITH ROUTINE HEALING [address] active 2 ENCOUNTER FOR OTHER ORTHOPEDIC AFTERCARE [address] active 3 ESSENTIAL (PRIMARY) HYPERTENSION [address] active 4 FALL ON SAME LEVEL FROM SLIPPING, TRIPPING AND STUMBLING WITHOUT SUBSEQUENT STRIKING AGAINST OBJECT, SUBSEQUENT ENCOUNTER [address] active 5 UNSPECIFIED PROTEIN-CALORIE MALNUTRITION [address] active Reason for Referral No Reasons for Referral Entered Social History Social History Observation Description Start Date End Date Code Code System Current Smoking Status Tobacco smoking consumption unknown 374447589 SNOMED CT Sex Assigned At Female 1940 46467-9 [facility] Gender Identity Sexual Orientation Vital Signs Code Code System Vitals Name Values and Units Timing Information 25462-8 [facility] Pain Level Value=0.0 03/07/2023 9279-1 [facility] Respiratory Rate Value=18.0 Units=/m in 03/06/2023 8462-4 [facility] Blood Pressure-Diastolic Value=77 Un its=mmHg 03/06/2023 8480-6 [facility] Blood Pressure-Systolic Tzinl=116 Un its=mmHg 03/06/2023 8310-5 [facility] Body Temperature Value=97.7 Units= F 03/06/2023 8867-4 [facility] Heart rate Value=74.0 Units=/min 00136-5 [facility] O2 % BldC Oximetry Value=99.0 Units= % 03/06/2023 39035-1 [facility] Weight Ecuph=227.0 Units=Lbs 8302-2 [facility] Height Value=68.4 Units=Inches 02/04/2023
[2025-07-06 18:26] LABS: MANUAL DIFF FLAG NO
[2025-07-06 18:34] LABS: Hematocrit 25.1 % (37.0-47.0); Hemoglobin 7.3 g/dl (12.0-16.0); Imm Gran Abs Auto 0.04 X10*3/uL (0.00-0.03); Imm Gran Pct Auto 0.6 % (0.0-0.4); Lymphocytes Absolute Auto 0.8 X10*3/uL (1.2-4.9); Mean Corpuscular HGB Conc 29.1 g/dl (31.0-35.0); Mean Corpuscular Hemoglobin 24.3 pg (27.0-33.0); Mean Corpuscular Volume 83.4 fL (80.0-98.0); NRBC Abs Auto 0.000 X10*3/uL (0.0-0.012); NRBC Pct Auto 0.0 /100WBC (0.0-0.2); Platelet Count 407 X10*3/uL (160-400); Red Blood Count 3.01 X10*6/uL (4.20-5.50); White Blood Count 7.0 X10*3/uL (4.8-10.8)
[2025-07-06 18:40] LABS: Alanine Aminotransferase 11 U/L (0-31); Albumin Level 4.5 g/dL (3.5-5.0); Alkaline Phosphatase 99 U/L (39-117); Anion Gap 12 (12-20); Aspartate Amino Transferase 22 U/L (5-31); Blood Urea Nitrogen 35 mg/dL (9-16); Calcium 8.9 mg/dL (8.4-10.2); Carbon Dioxide 25 mmol/L (22-29); Chloride 107 mmol/L (96-108); Cholesterol 203 mg/dL (<200); Estimated Glomerular Filt Rate 37; HDL Cholesterol 60 mg/dL (>40); Potassium 4.3 mmol/L (3.3-5.1); Sodium 140 mmol/L (135-145); Total Protein 6.9 g/dL (6.5-8.0); Triglycerides 94 mg/dL (<150)
== END 2025-07-06 12:07 | disposition home or self-care (01) ==
LOC: HO.MANLDS 12:06
PROVIDERS: Visit Provider Internal Medicine
DX: Z00.01 Encounter for general adult medical examination with abnormal findings (principal); Z13.6 Encounter for screening for cardiovascular disorders; I10 Essential (primary) hypertension
CPT/HCPCS: 36415; 80053; 80061; 85025

== ENCOUNTER 2025-07-12 11:27 | Outpatient (REF) | payer MEDICARE, SELFPAY ==
--- OUTSIDE RECORDS SUMMARY | 2024-04-09 09:20 | XMS_ITS ---
Author Organization [facility] Address [address] [place] [id number] Care Team Providers Care Golf Club Assembler Name Role Phone Lee Bolden Primary Care Provider Lamin Hess Jr REASON FOR VISIT FE DEF ANEMIA, HEME POSITIVE STOOLS Encounters Encounter Location Date Provider Diagnosis [facility] Inpatient [address], [place] [id number] 04/09/2024 Lamin Castro Jr Plan Of Treatment No Information Progress Notes * JUANI WHYTEDOB:1939 (85 yo F)Acc No.[id number]:04/09/2024 EGD and COL/MAC Patient: JUANI MERRILL Provider: Sin Castro MD :1940 A ge:84 Y S ex:Female Date:04/09/2024 Address:[address] [place] [address] [id number] Pcp:Lee Bolden Subjective: * Chief Complaints: * 1 . FE DEF ANEMIA, HEME POSITIVE STOOLS. * Medical History: Objective: * Vitals: Assessment: Plan: * Treatment: * * The named appointment provid er may or may not be the originator of this progress note, and it is not deemed complete until electronically signed by the appointment provider. Sign off status: Pending * Provider: Sin Castro MD Date: 04/09/2024 Generated for Jules mejia/Paula/Tamicaitting on: 07/12/2025 02:22 PM EDT
[2025-07-12 13:14] LABS: MANUAL DIFF FLAG NO
[2025-07-12 13:23] LABS: Hematocrit 26.9 % (37.0-47.0); Hemoglobin 7.7 g/dl (12.0-16.0); Imm Gran Abs Auto 0.03 X10*3/uL (0.00-0.03); Imm Gran Pct Auto 0.4 % (0.0-0.4); Lymphocytes Absolute Auto 0.8 X10*3/uL (1.2-4.9); Mean Corpuscular HGB Conc 28.6 g/dl (31.0-35.0); Mean Corpuscular Hemoglobin 24.1 pg (27.0-33.0); Mean Corpuscular Volume 84.3 fL (80.0-98.0); NRBC Abs Auto 0.000 X10*3/uL (0.0-0.012); NRBC Pct Auto 0.0 /100WBC (0.0-0.2); Platelet Count 365 X10*3/uL (160-400); Red Blood Count 3.19 X10*6/uL (4.20-5.50); White Blood Count 6.8 X10*3/uL (4.8-10.8)
[2025-07-12 13:59] LABS: Ferritin 20 ng/mL (10-250)
[2025-07-12 14:01] LABS: Iron 33 mcg/dL (30-160); Percent Iron Saturation 10 % (15-50); Total Iron Binding Capacity 345 mcg/dL (228-428); Unsaturated Iron Binding 312 ug/dL
--- OUTSIDE RECORDS SUMMARY | 2025-07-12 14:23 | XMS_ITS | Patient Health Record ---
Author Organization [facility] Address [address] [place] [address] Care Team Providers Care Neurological Physiotherapist Name Role Phone Lee Bolden Primary Care Provider Lamin Hess Jr Unavailable [phone] Reason For Referral No Information Problems Problem Type SNOMED Code ICD Code Onset Dates Problem Status W/U Status Risk Notes Problem Iron deficiency anemia ([id number]) Iron deficiency anemia (D50.9) Active confirmed Plan Of Treatment No Information Insurance Providers Payer Name Payer Address Payer Phone Subscriber Number Group Number Insured Name Patient Relationship to Insured Coverage Start Date Coverage End Date MEDICARE OF [place] [address] [facility] [address] [id number] JUANI WHYTE Self - patient is the insured MED[employer] ATTN CLAIMS [address] [place] [address] [phone] [id number] JUANI [employer]YTE Self - patient is the insured
--- OUTSIDE RECORDS SUMMARY | 2025-07-12 14:23 | XMS_ITS | Clinical Summary ---
Author Organization [facility] it Address [address] [place] [address] Care Team Providers Care Gravity Meter Observer Name Role Phone Unavailable Primary Care Provider Unavailabl e Social History Tobacco Use Types Packs/Day Years Used Date Smoking Tobacco: Never Assessed Comments Unknown Sex and Gender Information Value Date Recorded Sex Assigned at Not on file Legal Sex Female 1:39 PM EDT Gender Identity Not on file Sexual Orientation Not on file Plan of Treatment Health Maintenance Due Date Last Done Comments DTaP,Tdap,and Td Vaccines (1 - Tdap) 1959 Pneumococcal Vaccine: 50+ Ye ars (1 of 1 - PCV) 02/02/1992 Zoster Vaccines (1 of 2) 02/02/1992 RSV Immunization Adult Patie nts (1 - 1-dose 75+ series) 2017 Falls Risk Assessment 05/21/2024 Osteoporosis Screening (Bone Density Screening) 05/21/2024 Social Influencers of Health Screening 05/21/2024 Depression Screening 10/20/2024 COVID-19 Vaccine ( - 2023-2 5 season) 2025 Influenza Vaccine (#1) 2025 HIB Vaccines Aged Out No longer eligi ble based on patient's age to complete this topic HPV Vaccines Aged Out No longer eligi ble based on patient's age to complete this topic Hepatitis A Vaccines Aged Out No long er eligible based on patient's age to complete this topic Hepatitis B Vaccines Aged Out No long er eligible based on patient's age to complete this topic IPV Vaccines Aged Out No longer eligi ble based on patient's age to complete this topic MMR Vaccines Aged Out No longer eligi ble based on patient's age to complete this topic Meningococcal ACWY Vaccine Aged Out N o longer eligible based on patient's age to complete this topic Meningococcal B Vaccine Aged Out No l onger eligible based on patient's age to complete this topic RSV Immunization Patients Un wilder 20 months Aged Out No longer eligible b ased on patient's age to complete this topic Varicella Vaccines Aged Out No longer eligible based on patient's age to complete this topic Advance Directives Documents on File Type Date Recorded Patient Office Helper Clerical Expl anation Health Care Decision (hx) 02/23/2024 [facility]
--- OUTSIDE RECORDS SUMMARY | 2025-07-12 14:23 | XMS_ITS | Clinical Summary ---
Author Organization [facility] Address [address] [facility] [address] [place] [address] Phone Care Team Providers Care Farm Machinery Set Up Mechanic Name Role Phone Lee Bolden DO Primary Care Provider [phone] Allergies Active Allergy Reactions Criticality Noted Date Comments Amoxicillin 09/29/2024 Other Reaction(s): Unknown Aspirin Rash Low 08/27/2017 Atenolol 09/29/2024 Other Reaction(s): unknown Atorvastatin 09/29/2024 Other Reaction(s): unknown Colesevelam 09/29/2024 Other Reaction(s): unknown Ezetimibe 09/29/2024 Other Reaction(s): unknown Fenofibrate 09/29/2024 Other Reaction(s): unknown Sertraline 09/29/2024 Other Reaction(s): unknown Medications cranberry 500 mg Cap Take 500 mg by mouth daily. 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); [...] file Insurance MEDICARE PART A & B [employer] SUPPLEMENT MEDICARE PART A & B [employer] SU[employer]LE[employer] MEDICARE PART A & B [facility] MEDEX SUPPLEMENT MEDICARE PART A & B [employer] MEDEX SUPPLEMENT MEDICARE PART A & B [employer] SUPPLE[employer] MEDICARE PART A & B [employer] SU[employer] MEDICARE PART A & B [employer] SU[employer] MEDICARE PART A & B [employer] SU[employer] MEDICARE PART A & B [employer] SUPPLEMENT Care Teams Farm Machinery Set Up Mechanic Relationship Specialty Start Date End Date Lee Bolden DO PCP - General 08/07/17 Additional Source Comments The information contained in this document represents components of the legal health record. It is not the complete legal health record.[facility]
--- OUTSIDE RECORDS SUMMARY | 2025-07-12 14:23 | XMS_ITS | Encounter Summary ---
Author Organization [facility] Address [address] [facility] [address] [place] [address] Phone Care Team Providers Care Contact Center Manager Name Role Phone Lee Bolden DO Primary Care Provider Encounter Details Date Type Department Care Team ([facility] st Contact Info) Description 08/03/2018 Ancillary Orders Virtual Department [address] [place] [address] Lee Bolden DO [address] [facility] [place] [address] [email or web address] Breast screening Social History Tobacco Use Types [...] Images interpreted in conjunction with R-2 Image Wax Pot Tender computer-aided detection (CAD). FINDINGS: BREAST DENSITY: The [...] unspecified documented in this encounter Care Teams Contact Center Manager Relationship Specialty Start Date End Date Lee Bolden DO PCP - General 08/07/17 documented as of this encounter Additional Source Comments The information contained in this document represents components of the legal health record. It is not the complete legal health record.[facility]
--- OUTSIDE RECORDS SUMMARY | 2025-07-12 14:23 | XMS_ITS | Encounter Summary ---
Author Organization [facility] Address [address] [place] [address] Phone Care Team Providers Care Log Processor Operator Name Role Phone Lee Bolden DO Primary Care Provider [phone] Encounter Details Date Type Department Care Team (Late st Contact Info) Description 10/30/2018 Procedure Pass [facility] Endoscopy Admitting Dept Virtual Department [address] [place] [address] Social History Tobacco Use Types Packs/Day Years [...] on filedocumented in this encounter Care Teams Log Processor Operator Relationship Specialty Start Date End Date Lee Bolden DO PCP - General 08/07/17 documented as of this encounter Additional Source Comments The information contained in this document represents components of the legal health record. It is not the complete legal health record.[facility]
== END 2025-07-12 11:28 | disposition home or self-care (01) ==
LOC: HO.MANLDS 11:27
PROVIDERS: Visit Provider Internal Medicine
DX: D64.9 Anemia, unspecified (principal)
CPT/HCPCS: 36415; 82728; 83540; 85025